=== PATIENT | female | born 1955 | race Caucasian/White ===

== ENCOUNTER 2016-04-25 10:00 | Outpatient (RCR) ==
[2015-11-25 07:50] VITALS: BMI 26.5
--- NOTE | 2016-04-12 09:04 | RS.OPPTDN ---
Subjective Date of Note: 04/12/16 Visit #: 9 Date of Evaluation: 03/15/16 Payer Source: MEDICARE Treatment Diagnosis: Adhesive capsulitis right shoulder Current Subjective/complaints:: Patient reports she had follow-up appt. yesterday at [facility],has continuation orders for PT,also had an injection in the R shoulder. Pain Assessment - Pain Description Pain Location: right shoulder Pain Description: Tightness, Aching, Chronic Current Pain Intensity: 10/10 - Heat/Cryotherapy Treatment: Hot Pack (20 mins. prior to exercises.) Interventions - Exercise/Activities/Manual Therapy Exercises/Activities: 30 mins. total of PROM to AAROM all motions,finger ladder exrcises at different angles with flexion and scaption to 132 degress,abduction to 95-98 degrees.Passive IR to 70 ,ER to 40 degrees. Total minutes of Exercise: 30 Manual Therapy: N/A HOME EXERCISE PROGRAM: Gentle passive stretches using the L UE or wand to assist in all directions.Pendulum exercises,wall-slides upward with R hand for shoulder elevation. - Charges Total Direct Minutes: 30 Total Treatment Time: 50 Procedures billed for this date of service:: hp,ex 2 Assessment: Patient has improved passive motion today in all directions.We reviewed HEP and joint mechanics.She has normal supervisor mattress and boxsprings and biceps strength, dsicussed to focus on flexibility as opposed to strengthening at this time. Patient Education: Education of diagnosis, Body/Joint mechanics, Home Exercise Program, Home Safety, Activity Modification, Education of Plan of Care Patient demonstrates compliance with HEP?: Yes Short Term Goals Goal #1: Intermittent right shoulder pain. Goal to be met by: 04/01/16 Progress towards Goal:: Progressing Goal #2: Right shoulder flexion 120 degrees Goal to be met by: 04/01/16 Progress towards Goal:: Partially Met Goal #3: Right shoulder abduction 100 degrees. Goal to be met by: 04/01/16 Progress towards Goal:: Progressing Goal #4: Independent with beginning HEP. 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 Goal to be met by: 04/15/16 Progress towards goal: Met Goal #2: Patient is able to perform all ADLs independently. Goal to be met by: 04/15/16 Progress towards goal: Progressing Goal #3: Pain of right shoulder does not interrupt sleep Goal to be met by: 04/15/16 Progress towards goal: Progressing Goal #4: Patient can brush her hair with the RUE with min difficulty. Goal to be met by: 04/15/16 Progress towards goal: Partially Met Plan PLAN OF CARE EXPIRES ON:: 04/15/16 ORDER # VISITS AND/OR THROUGH DATE: 04/15/2016 PLAN: Progress Exercises
--- NOTE | 2016-04-14 09:09 | RS.OPPTDN ---
Subjective Date of Note: 04/14/16 Visit #: 10 Date of Evaluation: 03/15/16 Payer Source: MEDICARE Treatment Diagnosis: Adhesive capsulitis right shoulder Current Subjective/complaints:: Reports the shoulder feels better today.She is doing her HEP. Pain Assessment - Pain Description Pain Location: right shoulder Pain Description: Tightness, Aching, Chronic Current Pain Intensity: 3/10 - Heat/Cryotherapy Treatment: Hot Pack (20 mins.prior to exercises) Interventions - Exercise/Activities/Manual Therapy Exercises/Activities: 30 mins. total of PROM to AAROM all motions,finger ladder exrcises at different angles with flexion and scaption to 145 degress,abduction to 100 degrees.Passive IR to 70 ,ER to 40 degrees. Total minutes of Exercise: 30 Manual Therapy: N/A Total minutes of Manual Therapy: 0 HOME EXERCISE PROGRAM: Gentle passive stretches using the L UE or wand to assist in all directions.Pendulum exercises,wall-slides upward with R hand for shoulder elevation. - Charges Total Direct Minutes: 30 Total Treatment Time: 50 Procedures billed for this date of service:: hp,ex2 Assessment: Patient is progressing has increased active and passive motion in the R shoulder with less pain. Patient Education: Education of diagnosis, Body/Joint mechanics, Home Exercise Program, Home Safety, Activity Modification, Education of Plan of Care Patient demonstrates compliance with HEP?: Yes Short Term Goals Goal #1: Intermittent right shoulder pain. Goal to be met by: 04/01/16 Progress towards Goal:: Progressing Goal #2: Right shoulder flexion 120 degrees Goal to be met by: 04/01/16 Progress towards Goal:: Met Goal #3: Right shoulder abduction 100 degrees. Goal to be met by: 04/01/16 Progress towards Goal:: Partially Met Goal #4: Independent with beginning HEP. Goal to be met by: 04/01/16 Progress towards Goal:: Partially Met Longterm Goals Goal #1: Patient independent in HEP. Goal to be met by: 04/15/16 Progress towards goal: Met Goal #2: Patient is able to perform all ADLs independently. Goal to be met by: 04/15/16 Progress towards goal: Progressing Goal #3: Pain of right shoulder does not interrupt sleep Goal to be met by: 04/15/16 Progress towards goal: Progressing Goal #4: Patient can brush her hair with the RUE with min difficulty. Goal to be met by: 04/15/16 Progress towards goal: Partially Met Plan PLAN OF CARE EXPIRES ON:: 04/15/16 ORDER # VISITS AND/OR THROUGH DATE: 04/15/2016 PLAN: Progress Exercises
--- NOTE | 2016-04-15 12:09 | RS.OPPTDN ---
Subjective Date of Note: 04/15/16 Visit #: 11 Date of Evaluation: 03/15/16 Payer Source: MEDICARE Treatment Diagnosis: Adhesive capsulitis right shoulder Current Subjective/complaints:: Reports not sleeping well last night,and her shoulder pain is elevated today. Pain Assessment - Pain Description Pain Location: right shoulder Pain Description: Tightness, Aching, Chronic Current Pain Intensity: 5/10 - Heat/Cryotherapy Treatment: Hot Pack (20 mins. prior to exercises) Interventions - Exercise/Activities/Manual Therapy Exercises/Activities: 30 mins. total of PROM to AAROM all motions,different angles with flexion and scaption to 145 degress,abduction to 100 degrees.Passive IR to 70 ,ER to 40 degrees.1# dumbbell for R UE only of same motions. Total minutes of Exercise: 30 Manual Therapy: N/A Total minutes of Manual Therapy: 0 HOME EXERCISE PROGRAM: Gentle passive stretches using the L UE or wand to assist in all directions.Pendulum exercises,wall-slides upward with R hand for shoulder elevation. - Charges Total Direct Minutes: 30 Total Treatment Time: 50 Procedures billed for this date of service:: hp,ex 2 Assessment: Patient more guarded today due to muscle soreness ,but this improved as exercises progressed.She has functional shoulder scaption and elevation.She has report of increased soreness and pain with reaching behind her back,but this is slowly improving. Patient Education: Body/Joint mechanics, Home Exercise Program, Education of Plan of Care Patient demonstrates compliance with HEP?: Yes Short Term Goals Goal #1: Intermittent right shoulder pain. Goal to be met by: 04/01/16 Progress towards Goal:: Progressing Goal #2: Right shoulder flexion 120 degrees Goal to be met by: 04/01/16 Progress towards Goal:: Met Goal #3: Right shoulder abduction 100 degrees. Goal to be met by: 04/01/16 Progress towards Goal:: Met Goal #4: Independent with beginning HEP. 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 Goal to be met by: 04/15/16 Progress towards goal: Met Goal #2: Patient is able to perform all ADLs independently. Goal to be met by: 04/15/16 Progress towards goal: Progressing Goal #3: Pain of right shoulder does not interrupt sleep Goal to be met by: 04/15/16 Progress towards goal: Progressing Goal #4: Patient can brush her hair with the RUE with min difficulty. Goal to be met by: 04/15/16 Progress towards goal: Partially Met Plan PLAN OF CARE EXPIRES ON:: 04/15/16 ORDER # VISITS AND/OR THROUGH DATE: 04/15/2016 PLAN: Progress Exercises
--- NOTE | 2016-04-19 14:03 | RS.OPPTDN ---
Subjective Date of Note: 04/19/16 Visit #: 12 Date of Evaluation: 03/15/16 Payer Source: MEDICARE Treatment Diagnosis: Adhesive capsulitis right shoulder Current Subjective/complaints:: Reports elevated pain the last couple of daysc/ o the R shoulder feeling tighter. Pain Assessment - Pain Description Pain Location: right shoulder Pain Description: Tightness, Sharp, Aching, Chronic Current Pain Intensity: 7/10 - Treatment Modality: Ultrasound Parameters/Method Applied: 10 mins. @ 1.5 w/cm2 to R shoulder,continuous mode. Patient Position: Supine - Heat/Cryotherapy Treatment: Hot Pack (20 mins. prior to ex ,US) Interventions - Exercise/Activities/Manual Therapy Exercises/Activities: 10 mins. total of PROM in all directions,stopped due to sharp pain. Total minutes of Exercise: 10 Manual Therapy: N/A Total minutes of Manual Therapy: 0 HOME EXERCISE PROGRAM: Gentle passive stretches using the L UE or wand to assist in all directions.Pendulum exercises,wall-slides upward with R hand for shoulder elevation. - Charges Total Direct Minutes: 20 Total Treatment Time: 40 Procedures billed for this date of service:: hp,ex,US Assessment: Patient reports elevated pain today,pointing to the RTC insertion site today.She is more guarded today with all motions.Instructed to avoid exercises that elevates her pain today. Patient Education: Body/Joint mechanics, Home Safety, Activity Modification Patient demonstrates compliance with HEP?: Yes Short Term Goals Goal #1: Intermittent right shoulder pain. Goal to be met by: 04/01/16 Progress towards Goal:: Regressing Goal #2: Right shoulder flexion 120 degrees Goal to be met by: 04/01/16 Progress towards Goal:: Met Goal #3: Right shoulder abduction 100 degrees. Goal to be met by: 04/01/16 Progress towards Goal:: Met Goal #4: Independent with beginning HEP. Goal to be met by: 04/01/16 Progress towards Goal:: Partially Met Mcfp Goals Goal #1: Patient independent in HEP. Goal to be met by: 04/15/16 Progress towards goal: Met Goal #2: Patient is able to perform all ADLs independently. Goal to be met by: 04/15/16 (due to pain) Progress towards goal: Regressing Goal #3: Pain of right shoulder does not interrupt sleep Goal to be met by: 04/15/16 (due to pain) Progress towards goal: Regressing Goal #4: Patient can brush her hair with the RUE with min difficulty. Goal to be met by: 04/15/16 Progress towards goal: Partially Met Plan PLAN OF CARE EXPIRES ON:: 04/25/16 ORDER # VISITS AND/OR THROUGH DATE: 04/25/2016 PLAN: Continue Plan of Care
--- NOTE | 2016-04-20 09:27 | RS.OPPTDN ---
Subjective Date of Note: 04/20/16 Visit #: 13 Date of Evaluation: 03/15/16 Payer Source: MEDICARE Treatment Diagnosis: Adhesive capsulitis right shoulder Current Subjective/complaints:: Reports the pain is ,"a little better" this morning. Pain Assessment - Pain Description Pain Location: right shoulder Pain Description: Tightness, Sharp, Aching, Chronic Current Pain Intensity: 5/10 - Treatment Modality: Ultrasound Parameters/Method Applied: 10 mins. @ 1.5 w/cm2,continuous mode to R RTC tendon insertion site. Patient Position: Supine - Heat/Cryotherapy Treatment: Hot Pack (20 mins. R shoulder) Interventions - Exercise/Activities/Manual Therapy Exercises/Activities: 20 mins. total of 1# wand exercises,3/15 each of shoulder flexion,IR/ER,chest press with emphasis on scapular protraction. Total minutes of Exercise: 20 Manual Therapy: N/A Total minutes of Manual Therapy: 0 HOME EXERCISE PROGRAM: Gentle passive stretches using the L UE or wand to assist in all directions.Pendulum exercises,wall-slides upward with R hand for shoulder elevation. - Charges Total Direct Minutes: 30 Total Treatment Time: 50 Procedures billed for this date of service:: hp,ex ,US Assessment: Patient less guarded with wand exercises as opposed to PROM yesterday.Reports pain with active ER is less than yesterday.Her shoulder flexion and abduction is functional.She continues to be compliant to HEP, reminded her to do exercises in PAIN FREE ROM. Patient Education: Body/Joint mechanics, Home Exercise Program, Home Safety, Education of Plan of Care Patient demonstrates compliance with HEP?: Yes Short Term Goals Goal #1: Intermittent right shoulder pain. Goal to be met by: 04/01/16 Progress towards Goal:: Progressing Goal #2: Right shoulder flexion 120 degrees Goal to be met by: 04/01/16 Progress towards Goal:: Met Goal #3: Right shoulder abduction 100 degrees. Goal to be met by: 04/01/16 Progress towards Goal:: Met Goal #4: Independent with beginning HEP. 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 Goal to be met by: 04/15/16 Progress towards goal: Met Goal #2: Patient is able to perform all ADLs independently. Goal to be met by: 04/15/16 (due to pain) Progress towards goal: Progressing Goal #3: Pain of right shoulder does not interrupt sleep Goal to be met by: 04/15/16 (due to pain) Progress towards goal: Progressing Goal #4: Patient can brush her hair with the RUE with min difficulty. Goal to be met by: 04/15/16 Progress towards goal: Partially Met Plan PLAN OF CARE EXPIRES ON:: 04/25/16 ORDER # VISITS AND/OR THROUGH DATE: 04/25/2016 PLAN: Continue Plan of Care
--- NOTE | 2016-04-22 09:06 | RS.OPPTDN ---
Subjective Date of Note: 04/22/16 Visit #: 14 Date of Evaluation: 03/15/16 Payer Source: MEDICARE Treatment Diagnosis: Adhesive capsulitis right shoulder Current Subjective/complaints:: Reports , "15 out of 10",elevated pain during the night ,but is less at this time. Pain Assessment - Pain Description Pain Location: right shoulder Pain Description: Tightness, Sharp, Dull, Aching, Chronic Current Pain Intensity: 4/10 - Heat/Cryotherapy Treatment: Hot Pack (20 mins. to R shoulder prior to exercises) Interventions - Exercise/Activities/Manual Therapy Exercises/Activities: 25 mins. wand exercises with 3# for flexion ,scaption, IR/ ER,chest press.06/15 each.Ended session with PROM of same. Total minutes of Exercise: 25 Manual Therapy: N/A HOME EXERCISE PROGRAM: Gentle passive stretches using the L UE or wand to assist in all directions.Pendulum exercises,wall-slides upward with R hand for shoulder elevation. - Charges Total Direct Minutes: 25 Total Treatment Time: 45 Procedures billed for this date of service:: hp,ex 2 Assessment: Patient is approaching rehab potential.She continues to have sharp pain at end ROM ,passively or actively.She is compliant to HEp.Her pain varies with position ,also. Patient Education: Education of Plan of Care Patient demonstrates compliance with HEP?: Yes Short Term Goals Goal #1: Intermittent right shoulder pain. Goal to be met by: 04/01/16 Progress towards Goal:: Partially Met Goal #2: Right shoulder flexion 120 degrees Goal to be met by: 04/01/16 Progress towards Goal:: Met Goal #3: Right shoulder abduction 100 degrees. Goal to be met by: 04/01/16 Progress towards Goal:: Met Goal #4: Independent with beginning HEP. Goal to be met by: 04/01/16 Progress towards Goal:: Met Support Dba Goals Goal #1: Patient independent in HEP. Goal to be met by: 04/15/16 Progress towards goal: Met Goal #2: Patient is able to perform all ADLs independently. Goal to be met by: 04/15/16 (due to pain) Progress towards goal: Progressing Goal #3: Pain of right shoulder does not interrupt sleep Goal to be met by: 04/15/16 (due to pain) Progress towards goal: No Change Goal #4: Patient can brush her hair with the RUE with min difficulty. Goal to be met by: 04/15/16 Progress towards goal: Partially Met Plan PLAN OF CARE EXPIRES ON:: 04/25/16 ORDER # VISITS AND/OR THROUGH DATE: 04/25/2016 PLAN: Continue Plan of Care
--- NOTE | 2016-04-25 11:02 | RS.OPPTDC ---
Date of Discharge: 04/25/16 Date of Evaluation: 03/15/16 Number of Visits: 15 Treatment Diagnosis: Adhesive capsulitis right shoulder Current Level of Function: Tolerates ADL's fairly well,but chronic R shoulder pain still present. Current Complaints/Gains: Reports doing her HEP as tolerated.She is concerned that she is only getting temporary relief from therapy.She is aware of D/C plan today due to lack of progress. Pain Assessment - Pain Description Pain Location: right shoulder Pain Description: Tightness, Sharp, Dull, Aching, Chronic Current Pain Intensity: 5/10 Functional Outcome Measure UE Functional Index: 28 - G Codes & Severity Modifier G Codes & Modifier: NA Source of G Code score: NA Observation - Observation Posture: Rounded Shoulders - Heat/Cryotherapy Treatment: Hot Pack (20 mins. prior to exercises) Interventions - Exercise/Activities/Manual Therapy Exercises/Activities: 25 mins. HEP review and PROM all directions. Total minutes of Exercise: 25 Manual Therapy: N/A Total minutes of Manual Therapy: 0 HOME EXERCISE PROGRAM: Gentle passive stretches using the L UE or wand to assist in all directions.Pendulum exercises,wall-slides upward with R hand for shoulder elevation. - Charges Total Direct Minutes: 25 Total Treatment Time: 45 Procedures billed for this date of service:: hp,ex 2 Assessment Assessment: Patient has no significant change in her pain level,continues to have sharp pain at available end ROM ,especially with ER.She is compliant to HEP ,and understands to not push through sharp pain ,as her MRI indicates a supraspinatus tear.She has follow-up appt. with in one month.She is aware of D/C today. Patient Education: Body/Joint mechanics, Home Exercise Program, Activity Modification, Education of Plan of Care Rehab Potential: Fair Short Term Goals Goal #1: Intermittent right shoulder pain. Goal to be met by: 04/01/16 Progress towards Goal:: Partially Met Goal #2: Right shoulder flexion 120 degrees Goal to be met by: 04/01/16 Progress towards Goal:: Met Goal #3: Right shoulder abduction 100 degrees. Goal to be met by: 04/01/16 Progress towards Goal:: Met Goal #4: Independent with beginning HEP. 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 Goal to be met by: 04/15/16 Progress towards goal: Met Goal #2: Patient is able to perform all ADLs independently. Goal to be met by: 04/15/16 Progress towards goal: Progressing Goal #3: Pain of right shoulder does not interrupt sleep Goal to be met by: 04/15/16 (due to pain) Progress towards goal: No Change Goal #4: Patient can brush her hair with the RUE with min difficulty. Goal to be met by: 04/15/16 (increased pain today) Progress towards goal: Regressing Plan Reason for Discharge:: Lack of Progress
== END 2016-05-03 ==
PROVIDERS: ATTEND Orthopaedic Surgery
DX: M75.01 Adhesive capsulitis of right shoulder (principal)

== ENCOUNTER 2016-05-20 10:22 | Outpatient (CLI) ==
[2015-11-25 07:50] VITALS: BMI 26.5
[2016-05-20 18:26] LABS: ALBUMIN 4.1 g/dL (3.4-5.0); ALBUMIN/GLOBULIN RATIO 0.93; ANION GAP 16.7; BILIRUBIN,TOTAL 0.53 mg/dL (0.00-1.20); BUN/CREATININE RATIO 10.2; CALCIUM 10.1 mg/dL (8.2-10.2); CHOL/HDL RATIO 3.6 (4.5-5.5); CREATININE 0.98 mg/dL (0.60-1.30); POTASSIUM 3.7 mmol/L (3.5-5.10); TOTAL PROTEIN 8.5 g/dL (5.8-8.1)
== END 2016-05-20 10:23 | disposition home or self-care (01) ==
LOC: LAB 10:22
PROVIDERS: ATTEND Specialist
DX: D72.829 Elevated white blood cell count, unspecified (principal); E11.9 Type 2 diabetes mellitus without complications; E78.5 Hyperlipidemia, unspecified
CPT/HCPCS: 36415; 80053; 80061; 83036; 85027

== ENCOUNTER → 2016-07-01 | Outpatient (RCR) ==
[2015-11-25 07:50] VITALS: BMI 26.5
--- NOTE | 2016-06-10 16:31 | RS.OPPTEV2 ---
Date of Note: 06/10/16 Visit #: 1 Date of Evaluation: 06/10/16 Payer Source: MEDICARE Date of Onset/Injury/Change in Status: 10/06/14 Surgery Performed?: No Procedure Performed: Manipulation Date of Procedure: 06/09/16 Treatment Diagnosis: Right shoulder pain, shoulder stiffness, s/p right shoulder surgery History of Condition/Mechanism of Injury:: Patient injured the right shoulder in 2014, when she slipped on a wet area on the floor. Reports pain got progressively worse. Prior Level of Function.....Patient was independent with: ADL's, Self Care, Caregiving, Ambulation/Mobility, Community Integration/Access Functional Limitations: Sleep, Self Care, ADL's, Reaching, Pushing, Pulling, Lifting, Carrying, Sitting, Standing, Bending, Squatting, Ambulation, Community Access/Integration Current Subjective/complaints:: Patient reports significant right shoulder pain after having surgery yesterday (06/09/16). States she was not able to have a nerve block. Her states that she is to use the sling until she goes back to the doctor for a follow up on 06/20/16. States the surgery involved a manipulation to the shoulder and cleaning out all of the scar tissue. She denies any tingling or numbness. States she is right hand dominant. Reports she has Bunch for pain. She is taking one every 4 hours. She did take one approximately an hour before coming in today. States the arm aches at rest. States her sleep was interrupted prior to surgery because of the shoulder. States she was unable to go to sleep until about 1:30 this morning. Treatment Side (optional): Right Medical History Medical History: COPD, Diabetes, Arthritis (joints), Cancer (ovarian) Surgical History: Lumbar Spine Surgical History Comments:: Multiple vascular stents with most recent last wk. Smoking Status: Current every day smoker Hx Home Medications: Bunch, Gabapentin Patient's Goals: Her goal is to get relief of shoulder pain and regain functional ROM. Pain Assessment - Pain Description Pain Location: right shoulder Pain Description: Sharp (at times), Aching Current Pain Intensity: 8/10 Worst Pain Intensity: not rated Functional Outcome Measure UE Functional Index: 0 - G Codes & Severity Modifier G Codes & Modifier: Selfcare current CN. Selfcare goal CK Source of G Code score: UE functional scale Observation - Observation Inspection: Patient presents to therapy with pressure dressing over the right shoulder joint and sling to the right UE. Posture: Forward Head, Rounded Shoulders, Scapula Asymmetry (right elevated) Handedness: Right BMI - BMI Weight: 144 lb Height: 5 ft 2 in BMI: 26.3 Shoulder ROM: Left WFL's Shoulder Muscle Strength: Left WFL's - Right Shoulder ROM Comments: PROM of the right shoulder limited significantly by muscle guarding and anxiety of patient. Patient with reports of sharp pain with shoulder abduction. Patient maximal PROM today: flexion 85-90 degrees, abduction 40 degrees, ER 20-30 degrees. Sensation - Sensation Right Upper Extremity: Intact/Normal Left Upper Extremity: Intact/Normal Interventions - Exercise/Activities/Manual Therapy Exercises/Activities: Patient received PROM to the right shoulder into flexion, abduction, ER for 25 mins. Patient instructed in scapular retraction, pendulum exercises, and PROM into shoulder flexion. Also given squeeze ball to work the right hand for swelling. Given written instructions to make homemade cold pack with rubbing alcohol and water. Strongly advised to ice the right shoulder several times a day and recommended she take 2 Bunch an hour before therapy. Manual Therapy: N/A HOME EXERCISE PROGRAM: scapular retraction, pendulum exercises, and PROM into shoulder flexion. Also given squeeze ball to work the right hand for swelling - Charges Total Direct Minutes: 55 mins Total Treatment Time: 55 mins Procedures billed for this date of service:: DICK Nichols, GAYE Assessment Assessment: Patient presents one day s/p right shoulder surgery with manipulation. She demonstrates a low tolerance for ROM today due to reports of pain. I recommended she take two Bunch for the pain rather than just one like she did today. She is right hand dominant and currently is unable to use the right hand for selfcare or ADL's. She will benefit from therapy to regain functional use of the right UE. Patient Education: Education of diagnosis, Body/Joint mechanics, Home Exercise Program, Home Safety, Activity Modification, Education of Plan of Care Rehab Potential: Good Short Term Goals Goal #1: Patient compliant with HEP. Goal to be met by: 06/17/16 Goal #2: PROM of right shoulder WFL's. Goal to be met by: 06/24/16 Goal #3: Right shoulder AROM 90 degrees flexion. Goal to be met by: 06/24/16 Goal #4: Patient with improved postural awareness. Goal to be met by: 06/24/16 Administration Vice President Goals Goal #1: Pt knows HEP and to continue ex's to maintain level of function at D/C. Goal to be met by: 07/25/16 Goal #2: Score on UE functional scale improved to 50/80. Goal to be met by: 07/25/16 Goal #3: Pt able to use right UE for selfcare and light ADL's w/o difficulty. Goal to be met by: 07/25/16 Goal #4: Patient able to sleep at night w/o interruption from right shoulder pain. Goal to be met by: 07/25/16 Plan - Treatment to be Provided Procedures: Therapeutic Exercises, Therapeutic Activity, Manual Therapy, Massage , Patient Education Modalities: Electrical Stimulation, Cryotherapy - Treatment Plan Frequency: Daily (for two weeks, 3X week for 4 weeks.) Duration: 6 weeks ORDER # VISITS AND/OR THROUGH DATE: 07/25/16 - Treatment Code (1) Right shoulder pain Qualifiers: Chronicity: acute Qualified Description: Acute pain of right shoulder Qualifier Code(s): (M25.511) Pain in right shoulder (2) Shoulder stiffness Qualifiers: Laterality: right Qualified Description: Stiffness of shoulder joint, right Qualifier Code(s): (M25.611) Stiffness of right shoulder, not elsewhere classified (3) Adhesive capsulitis Qualifiers: Laterality: right Qualified Description: Adhesive capsulitis of right shoulder Qualifier Code(s): (M75.01) Adhesive capsulitis of right shoulder (4) S/P shoulder surgery Comments: Z98.890 manipulation, subacromial decompression.
--- NOTE | 2016-06-13 13:28 | RS.OPPTDN ---
Subjective Date of Note: 06/13/16 Visit #: 2 Date of Evaluation: 06/10/16 Payer Source: MEDICARE Treatment Diagnosis: Right shoulder pain, shoulder stiffness, s/p right shoulder surgery Current Subjective/complaints:: Patient reports she only took one pain tablet because she was worried taking 2 would make her sick to her stomach. Reports pain with all passive motion. Pain Assessment - Pain Description Pain Location: right shoulder Pain Description: Sharp (at times), Aching Pain Description: "lightning bolt" down right LE. Current Pain Intensity: 8/10 Other Comments regarding Pain:: Reports sharp pain with PROM of right shoulder into flexion. Patient cries during treatment due to pain. - Heat/Cryotherapy Treatment: Cryotherapy ([id number] to the right shoulder prior to EX. Patient in sitting. ) Interventions - Exercise/Activities/Manual Therapy Exercises/Activities: Patient received PROM to the right shoulder into flexion, which is limited due to pain. ROM of right wrist and elbow flexion/extension. Patient assisted to standing and leans on high table for assisted Codmans. Active shoulder shrugs and scap retraction. Cervical lateral stretching. Reminded patient to work on squeezing ball for right hand for swelling. Patient given copies of new exercise. Total minutes of Exercise: 30mins Manual Therapy: N/A HOME EXERCISE PROGRAM: scapular retraction, pendulum exercises, and PROM into shoulder flexion. Also given squeeze ball to work the right hand for swelling. - Objective Findings Observations,measurements,etc.: 5mins. Removed patients post-op dressing. Incisions are dry and intact. No redness noted. Covered with 4x4's to protect from clothing when patient left department. Patient very guarded but was able to tolerate right arm to approx 95 degrees flexion by end of session. - Charges Total Direct Minutes: 35mins Total Treatment Time: 50mins Procedures billed for this date of service:: CP, EX2 Assessment: Patients pain level limiting ROM. She will need to work on Codmans and use ice several times per day. Patient Education: Education of diagnosis, Body/Joint mechanics, Home Exercise Program, Home Safety, Activity Modification Patient demonstrates compliance with HEP?: Yes Short Term Goals Goal #1: Patient compliant with HEP. Goal to be met by: 06/17/16 Progress towards Goal:: Progressing Goal #2: PROM of right shoulder WFL's. Goal to be met by: 06/24/16 Goal #3: Right shoulder AROM 90 degrees flexion. Goal to be met by: 06/24/16 Goal #4: Patient with improved postural awareness. Goal to be met by: 06/24/16 Ladder Operator Goals Goal #1: Pt knows HEP and to continue ex's to maintain level of function at D/C. Goal to be met by: 07/25/16 Goal #2: Score on UE functional scale improved to 50/80. Goal to be met by: 07/25/16 Goal #3: Pt able to use right UE for selfcare and light ADL's w/o difficulty. Goal to be met by: 07/25/16 Goal #4: Patient able to sleep at night w/o interruption from right shoulder pain. Goal to be met by: 07/25/16 Plan PLAN OF CARE EXPIRES ON:: 07/25/16 ORDER # VISITS AND/OR THROUGH DATE: 07/25/16 PLAN: Continue Plan of Care
--- NOTE | 2016-06-14 10:21 | RS.OPPTDN ---
Subjective Date of Note: 06/14/16 Visit #: 3 Date of Evaluation: 06/10/16 Payer Source: MEDICARE Treatment Diagnosis: Right shoulder pain, shoulder stiffness, s/p right shoulder surgery Current Subjective/complaints:: Patient says she took 2 pain pills this morning and denies nausea. She says that she tries to move her arm (table slides for flexion, scap retraction, and shoulder shrugs). She says she is using ice too. Pain Assessment - Pain Description Pain Location: right shoulder (upper arm) Pain Description: Sharp (at times), Aching Pain Description: "lightning bolt" down right LE. Current Pain Intensity: 8/10 - Treatment Modality: Electrical Stim Unattended Parameters/Method Applied: hivolt 4 small pads crossed over the R shoulder @ 90 pk volts x 20 mins with ice. PRIOR to therex Patient Position: Sitting - Heat/Cryotherapy Treatment: Cryotherapy Interventions - Exercise/Activities/Manual Therapy Exercises/Activities: Patient received PROM to the right shoulder into flexion, which is limited due to pain. ROM of right wrist and elbow flexion/extension in supine with head of table inclined. Patient stands to perform pendulum several times. Moved to chair due to increased pain and very limited PROM. Active shoulder shrugs and scap retraction. Cervical lateral stretching. Reviewed HEP. Total minutes of Exercise: 30 Manual Therapy: N/A HOME EXERCISE PROGRAM: scapular retraction, pendulum exercises, and PROM into shoulder flexion. Also given squeeze ball to work the right hand for swelling. - Objective Findings Observations,measurements,etc.: purple bruising noted at the R posterior shoulder, along the bicep muscle belly and to the medial mid humerus. - Charges Total Direct Minutes: 30 Total Treatment Time: 50 Procedures billed for this date of service:: cp, estim (un), ex2 Assessment: Patient bayron treatment better today probably due to taking 2 pain meds and we did move from supine to sitting. She bayron increased passive shoulder flexion and eccentric exercises better as well. Patient Education: Education of diagnosis, Body/Joint mechanics, Home Exercise Program, Home Safety, Activity Modification, Education of Plan of Care Patient demonstrates compliance with HEP?: Yes Short Term Goals Goal #1: Patient compliant with HEP. Goal to be met by: 06/17/16 Progress towards Goal:: Progressing Goal #2: PROM of right shoulder WFL's. Goal to be met by: 06/24/16 Goal #3: Right shoulder AROM 90 degrees flexion. Goal to be met by: 06/24/16 Goal #4: Patient with improved postural awareness. Goal to be met by: 06/24/16 Tight Rope Walker Goals Goal #1: Pt knows HEP and to continue ex's to maintain level of function at D/C. Goal to be met by: 07/25/16 Goal #2: Score on UE functional scale improved to 50/80. Goal to be met by: 07/25/16 Goal #3: Pt able to use right UE for selfcare and light ADL's w/o difficulty. Goal to be met by: 07/25/16 Goal #4: Patient able to sleep at night w/o interruption from right shoulder pain. Goal to be met by: 07/25/16 Plan PLAN OF CARE EXPIRES ON:: 07/25/16 ORDER # VISITS AND/OR THROUGH DATE: 07/25/16 PLAN: Progress Exercises
--- NOTE | 2016-06-15 15:20 | RS.OPPTDN ---
Subjective Date of Note: 06/15/16 Visit #: 4 Date of Evaluation: 06/10/16 Payer Source: MEDICARE Treatment Diagnosis: Right shoulder pain, shoulder stiffness, s/p right shoulder surgery Current Subjective/complaints:: Patient states she took two pain pills prior to therapy. States she cannot tolerate ROM/stretching to the right shoulder in supine. States she prefers to receive her therapy sitting in the chair. Patient states she has only performed the pendulum exercise a few times. States she doesn't like it because it hurts. Pain Assessment - Pain Description Pain Location: right shoulder (upper arm) Pain Description: Sharp, Aching Current Pain Intensity: 8/10 - Treatment Modality: Electrical Stim Unattended Parameters/Method Applied: 4 large pads to right shoulder HVGS X 15 mins with CP up to 135 peak volts Patient Position: Sitting - Heat/Cryotherapy Treatment: Cryotherapy (with Estim) Interventions - Exercise/Activities/Manual Therapy Exercises/Activities: Patient request to receive PROM while seated in chair. Patient received PROM into all directions. Patient tolerates Passive to AAROM to 95 degrees flexion in sitting, abduction to 60 degrees. ER is limited passively to 15-20 degrees. Patient feels a "pull" with ER. *Surgical report has not been received at this date. Another call was made to the [facility] to request information on what procedures were performed to the patient's shoulder so that we know what to avoid and how aggressive to push therapy. Manual Therapy: N/A HOME EXERCISE PROGRAM: scapular retraction, pendulum exercises, and PROM into shoulder flexion. Also given squeeze ball to work the right hand for swelling. - Charges Total Direct Minutes: 26 mins Total Treatment Time: 41 mins Procedures billed for this date of service:: CP, EStim, Ex2 Assessment: Patient with better tolerance with ROM today compared to initial visit. She had taken two pain pills today prior to her appointment. Right shoulder ROM is significantly limited, especially into ER. Advised patient to perform pendulum exercise a few times a day all with the exercises of her HEP. We have not been able to get an operative report. My call today to the [facility] was forwarded to Medical Records again. Patient Education: Body/Joint mechanics, Home Exercise Program, Home Safety, Activity Modification, Education of Plan of Care Short Term Goals Goal #1: Patient compliant with HEP. Goal to be met by: 06/17/16 Progress towards Goal:: Progressing Goal #2: PROM of right shoulder WFL's. Goal to be met by: 06/24/16 Goal #3: Right shoulder AROM 90 degrees flexion. Goal to be met by: 06/24/16 Goal #4: Patient with improved postural awareness. Goal to be met by: 06/24/16 Long-Term Goals Goal #1: Pt knows HEP and to continue ex's to maintain level of function at D/C. Goal to be met by: 07/25/16 Goal #2: Score on UE functional scale improved to 50/80. Goal to be met by: 07/25/16 Goal #3: Pt able to use right UE for selfcare and light ADL's w/o difficulty. Goal to be met by: 07/25/16 Goal #4: Patient able to sleep at night w/o interruption from right shoulder pain. Goal to be met by: 07/25/16 Plan PLAN OF CARE EXPIRES ON:: 07/25/16 ORDER # VISITS AND/OR THROUGH DATE: 07/25/16 PLAN: Progress Exercises
--- NOTE | 2016-06-16 12:31 | RS.OPPTDN ---
Subjective Date of Note: 06/16/16 Visit #: 5 Date of Evaluation: 06/10/16 Payer Source: MEDICARE Treatment Diagnosis: Right shoulder pain, shoulder stiffness, s/p right shoulder surgery Current Subjective/complaints:: Patient reports continued pain to the R shoulder. She reports tightness at the mid deltoid region. She says she will return to the MD on 06/21/16. She states she did take 2 pain meds again this morning to help with therapy. Reports estim does help temporarily. Pain Assessment - Pain Description Pain Location: right shoulder (upper arm) Pain Description: Sharp, Aching Pain Description: "lightning bolt" down right LE. Current Pain Intensity: 10/10 - Treatment Modality: Electrical Stim Unattended Parameters/Method Applied: 4 small pads surrounding the R shoulder @ 145-160 pk volts x 20 mins PRIOR to therex Patient Position: Sitting - Heat/Cryotherapy Treatment: Cryotherapy Interventions - Exercise/Activities/Manual Therapy Exercises/Activities: Patient request to receive PROM while seated in chair. Patient received PROM into all directions. Patient tolerates Passive to AAROM to 95-100 degrees flexion in sitting, abduction to 60 degrees. ER is limited passively to only neutral today. Patient feels a "pull" with ER and with abd. Passive elbow and wrist motions. *Surgical report has not been received at this date. Another call was made to the [facility] to request information on what procedures were performed to the patient's shoulder so that we know what to avoid and how aggressive to push therapy. Total minutes of Exercise: 35 Manual Therapy: N/A HOME EXERCISE PROGRAM: scapular retraction, pendulum exercises, and PROM into shoulder flexion. Also given squeeze ball to work the right hand for swelling. - Charges Total Direct Minutes: 35 Total Treatment Time: 55 Procedures billed for this date of service:: ex2, estim (un), cp Assessment: Patient continues to be unable to bayron therex well. She does demo improved passive flexion, but worse ER. Patient Education: Education of diagnosis, Body/Joint mechanics, Home Exercise Program, Home Safety, Activity Modification, Education of Plan of Care Patient demonstrates compliance with HEP?: Yes (when able) Short Term Goals Goal #1: Patient compliant with HEP. Goal to be met by: 06/17/16 Progress towards Goal:: Progressing Goal #2: PROM of right shoulder WFL's. Goal to be met by: 06/24/16 Goal #3: Right shoulder AROM 90 degrees flexion. Goal to be met by: 06/24/16 Goal #4: Patient with improved postural awareness. Goal to be met by: 06/24/16 Mcfp Goals Goal #1: Pt knows HEP and to continue ex's to maintain level of function at D/C. Goal to be met by: 07/25/16 Goal #2: Score on UE functional scale improved to 50/80. Goal to be met by: 07/25/16 Goal #3: Pt able to use right UE for selfcare and light ADL's w/o difficulty. Goal to be met by: 07/25/16 Goal #4: Patient able to sleep at night w/o interruption from right shoulder pain. Goal to be met by: 07/25/16 Plan PLAN OF CARE EXPIRES ON:: 07/25/16 ORDER # VISITS AND/OR THROUGH DATE: 07/25/16 PLAN: Progress Exercises (as able)
--- NOTE | 2016-06-17 16:19 | RS.OPPTDN ---
Subjective Date of Note: 06/17/16 Visit #: 6 Date of Evaluation: 06/10/16 Payer Source: MEDICARE Treatment Diagnosis: Right shoulder pain, shoulder stiffness, s/p right shoulder surgery Current Subjective/complaints:: Patient reports continued discomfort with PROM all directions. Pain Assessment - Pain Description Pain Location: right shoulder (upper arm) Pain Description: Sharp, Aching Pain Description: "lightning bolt" down right LE. Current Pain Intensity: 10/10 - Treatment Modality: Electrical Stim Unattended Parameters/Method Applied: [id number] HVGC 250p.v. with 4 small pads cross current to the right shoulder joint with CP prior to EX. Patient Position: Sitting - Heat/Cryotherapy Treatment: Cryotherapy ([id number] with Estim ) Interventions - Exercise/Activities/Manual Therapy Exercises/Activities: Began with assisted Codmans ABS. Assisted with passive shoulder motion. Continued PROM in chair as patient responded better last session. PROM into all directions. ROM of the right elbow and wrist. Active shoulder shrugs and scapular retraction. Patient tolerates PROM to 114 degrees flexion and 85 abduction. ER is limited passively to 18 degrees. Total minutes of Exercise: 25mins Manual Therapy: N/A HOME EXERCISE PROGRAM: scapular retraction, pendulum exercises, and PROM into shoulder flexion. Also given squeeze ball to work the right hand for swelling. - Objective Findings Observations,measurements,etc.: PROM to 114 degrees flexion and 85 abduction. ER is limited passively to 18 degrees. - Charges Total Direct Minutes: 25mins Total Treatment Time: 45mins Procedures billed for this date of service:: CP, Estim unattended, EX2 Assessment: Patient continues to be very limited due to pain. She did demo improvement in PROM measurements today. Patient Education: Home Exercise Program, Activity Modification Comments: Advised patient to increase times per day she is doing Codmans. Patient demonstrates compliance with HEP?: Yes Short Term Goals Goal #1: Patient compliant with HEP. Goal to be met by: 06/17/16 Progress towards Goal:: Progressing Goal #2: PROM of right shoulder WFL's. Goal to be met by: 06/24/16 Progress towards Goal:: Progressing Goal #3: Right shoulder AROM 90 degrees flexion. Goal to be met by: 06/24/16 Progress towards Goal:: Not Met Goal #4: Patient with improved postural awareness. Goal to be met by: 06/24/16 Progress towards Goal:: Progressing Painter Touch Up Goals Goal #1: Pt knows HEP and to continue ex's to maintain level of function at D/C. Goal to be met by: 07/25/16 Goal #2: Score on UE functional scale improved to 50/80. Goal to be met by: 07/25/16 Goal #3: Pt able to use right UE for selfcare and light ADL's w/o difficulty. Goal to be met by: 07/25/16 Goal #4: Patient able to sleep at night w/o interruption from right shoulder pain. Goal to be met by: 07/25/16 Plan PLAN OF CARE EXPIRES ON:: 07/25/16 ORDER # VISITS AND/OR THROUGH DATE: 07/25/16 PLAN: Continue Plan of Care (Continue and progress ROM and gentle strengthening. )
--- NOTE | 2016-06-20 16:17 | RS.OPPTDN ---
Subjective Date of Note: 06/20/16 Visit #: 7 Date of Evaluation: 06/10/16 Payer Source: MEDICARE Treatment Diagnosis: Right shoulder pain, shoulder stiffness, s/p right shoulder surgery Current Subjective/complaints:: Patient says that she was told we could exercise her arm more and only wear her sling when she feels she needs to. She says her arm is moving better and she continues to work it at home. Pain Assessment - Pain Description Pain Location: right shoulder (anteriorally) Pain Description: Sharp, Aching Pain Description: "lightning bolt" down right LE. Current Pain Intensity: 09/10 - Treatment Modality: Electrical Stim Unattended Parameters/Method Applied: 4 small pads surrounding the R shoulder @ 135 pk volts x 20 mins prior to therex Patient Position: Sitting - Heat/Cryotherapy Treatment: Cryotherapy Interventions - Exercise/Activities/Manual Therapy Exercises/Activities: Assisted with passive shoulder motion. Continued PROM in chair as patient responds best. PROM into all directions. ROM of the right elbow and wrist. Active shoulder shrugs and scapular retraction. Active elbow and wrist motion. Began shoulder pulleys x 12 slowly and showed as he felt he could make them at home instead of purchasing them. Total minutes of Exercise: 33 Manual Therapy: N/A HOME EXERCISE PROGRAM: scapular retraction, pendulum exercises, and PROM into shoulder flexion. Also given squeeze ball to work the right hand for swelling. - Charges Total Direct Minutes: 33 Total Treatment Time: 53 Procedures billed for this date of service:: cp, estim (un), ex2 Assessment: Patient continues to demonstrate slow improvement with mobility. ER bayron better with less pain, but most success with shoulder flexion. Purple bruising remains throughout the R upper arm. She was encouraged to leave therapy without the sling, but wear perhaps out shopping so to protect the shoulder from others. Began pulleys and patient's will likely make them for her to work with at home. Less pain noted throughout session and afterwards. Patient Education: Education of diagnosis, Body/Joint mechanics, Home Exercise Program, Home Safety, Activity Modification, Education of Plan of Care Patient demonstrates compliance with HEP?: Yes Short Term Goals Goal #1: Patient compliant with HEP. Goal to be met by: 06/17/16 Progress towards Goal:: Progressing Goal #2: PROM of right shoulder WFL's. Goal to be met by: 06/24/16 Progress towards Goal:: Progressing Goal #3: Right shoulder AROM 90 degrees flexion. Goal to be met by: 06/24/16 Progress towards Goal:: Not Met Goal #4: Patient with improved postural awareness. 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 Goal to be met by: 07/25/16 Goal #2: Score on UE functional scale improved to 50/80. Goal to be met by: 07/25/16 Goal #3: Pt able to use right UE for selfcare and light ADL's w/o difficulty. Goal to be met by: 07/25/16 Goal #4: Patient able to sleep at night w/o interruption from right shoulder pain. Goal to be met by: 07/25/16 Plan PLAN OF CARE EXPIRES ON:: 07/25/16 ORDER # VISITS AND/OR THROUGH DATE: 07/25/16 PLAN: Progress Exercises
--- NOTE | 2016-06-21 15:40 | RS.OPPTDN ---
Subjective Date of Note: 06/21/16 Visit #: 8 Date of Evaluation: 06/10/16 Payer Source: MEDICARE Treatment Diagnosis: Right shoulder pain, shoulder stiffness, s/p right shoulder surgery Current Subjective/complaints:: Patient reports increased pain since yesterday. Says she doesn't know what it is from. Reports she has not obtained pulleys from home yet, but will do so tonight. She says she pulled the steri strips off and feels "knots" at all 3 scope sites. She reports soreness at the anterior site with passive flexion. Pain Assessment - Pain Description Pain Location: right shoulder (anteriorally) Pain Description: Sharp, Aching Pain Description: "lightning bolt" down right LE. Current Pain Intensity: 09/10 - Treatment Modality: Electrical Stim Unattended Parameters/Method Applied: 4 small pads crossed @ 155-170 pk volts x 15 mins after therex Treatment Area: surrounding the R shoulder Patient Position: Sitting - Heat/Cryotherapy Treatment: Cryotherapy (during PROM of shoulder, elbow, and wrist in sitting) Interventions - Exercise/Activities/Manual Therapy Exercises/Activities: Assisted with passive shoulder motion. Continued PROM in chair as patient responds best. PROM into all directions. ROM of the right elbow and wrist. Active shoulder shrugs and scapular retraction. Active elbow and wrist motion. Continued with shoulder pulleys x 5-6. Total minutes of Exercise: 33 Manual Therapy: N/A HOME EXERCISE PROGRAM: scapular retraction, pendulum exercises, and PROM into shoulder flexion. Also given squeeze ball to work the right hand for swelling. - Charges Total Direct Minutes: 33 Total Treatment Time: 48 Procedures billed for this date of service:: cp, estim (un), ex2 Assessment: Patient experienced increased soreness following yesterday's session. She appeared to bayron all therex well today as PROM continued, but lessened time on pulleys and modified range passively with flex. Patient's motion appeared more tolerable with icing during PROM. Patient Education: Education of diagnosis, Body/Joint mechanics, Home Exercise Program, Home Safety, Activity Modification, Education of Plan of Care Patient demonstrates compliance with HEP?: Yes Short Term Goals Goal #1: Patient compliant with HEP. Goal to be met by: 06/17/16 Progress towards Goal:: Progressing Goal #2: PROM of right shoulder WFL's. Goal to be met by: 06/24/16 Progress towards Goal:: Progressing Goal #3: Right shoulder AROM 90 degrees flexion. Goal to be met by: 06/24/16 Progress towards Goal:: Not Met Goal #4: Patient with improved postural awareness. 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 Goal to be met by: 07/25/16 Goal #2: Score on UE functional scale improved to 50/80. Goal to be met by: 07/25/16 Goal #3: Pt able to use right UE for selfcare and light ADL's w/o difficulty. Goal to be met by: 07/25/16 Goal #4: Patient able to sleep at night w/o interruption from right shoulder pain. Goal to be met by: 07/25/16 Plan PLAN OF CARE EXPIRES ON:: 07/25/16 ORDER # VISITS AND/OR THROUGH DATE: 07/25/16 PLAN: Progress Exercises
--- NOTE | 2016-06-22 14:00 | RS.OPPTDN ---
Subjective Date of Note: 06/22/16 Visit #: 9 Date of Evaluation: 06/10/16 Payer Source: MEDICARE Treatment Diagnosis: Right shoulder pain, shoulder stiffness, s/p right shoulder surgery Current Subjective/complaints:: Patient reports active assisted motion is getting better. States her has bought items to make home shoulder pulleys. Pain Assessment - Pain Description Pain Location: right shoulder (anteriorally) Pain Description: Sharp, Aching Pain Description: "lightning bolt" down right LE. Current Pain Intensity: 10 - Treatment Modality: Electrical Stim Unattended Parameters/Method Applied: [id number] HVGC to 165p.v. with 4 small pads cross current to the right shoulder with CP prior to EX. Patient Position: Sitting - Heat/Cryotherapy Treatment: Cryotherapy ([id number] with Estim ) Interventions - Exercise/Activities/Manual Therapy Exercises/Activities: 30mins Continued PROM and AAROM with patient in sitting. ROM of the right elbow and wrist. Patient holds right UE in mid range when going through right shoulder ROM. Active shoulder shrugs and scapular retraction. Isometric right shoulder flex, ext, add, abd, IR, and ER, multiple sets of 5reps. Codmans. Began curr series, 4 directions. Total minutes of Exercise: 30mins Manual Therapy: N/A HOME EXERCISE PROGRAM: scapular retraction, pendulum exercises, and PROM into shoulder flexion. Also given squeeze ball to work the right hand for swelling. - Charges Total Direct Minutes: 30mins Total Treatment Time: 50mins Procedures billed for this date of service:: CP, Estim unattended, EX2 Assessment: Patient progressed with exercise today. She is able to perform more with active assissted. Patient Education: Body/Joint mechanics, Home Exercise Program Patient demonstrates compliance with HEP?: Yes Short Term Goals Goal #1: Patient compliant with HEP. Goal to be met by: 06/17/16 Progress towards Goal:: Met Goal #2: PROM of right shoulder WFL's. Goal to be met by: 06/24/16 Progress towards Goal:: Progressing Goal #3: Right shoulder AROM 90 degrees flexion. Goal to be met by: 06/24/16 Progress towards Goal:: Not Met Goal #4: Patient with improved postural awareness. 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 Goal to be met by: 07/25/16 Goal #2: Score on UE functional scale improved to 50/80. Goal to be met by: 07/25/16 Goal #3: Pt able to use right UE for selfcare and light ADL's w/o difficulty. Goal to be met by: 07/25/16 Goal #4: Patient able to sleep at night w/o interruption from right shoulder pain. Goal to be met by: 07/25/16 Plan PLAN OF CARE EXPIRES ON:: 07/25/16 ORDER # VISITS AND/OR THROUGH DATE: 07/25/16 PLAN: Continue Plan of Care (Continue modalities and progress exercise.)
--- NOTE | 2016-06-23 16:07 | RS.OPPTDN ---
Subjective Date of Note: 06/23/16 Visit #: 10 Date of Evaluation: 06/10/16 Payer Source: MEDICARE Treatment Diagnosis: Right shoulder pain, shoulder stiffness, s/p right shoulder surgery Current Subjective/complaints:: Patient states that she is finding more mobility and improved bayron to PROM. Says she tried to put on a regular shirt on and could not do it yet. Pain Assessment - Pain Description Pain Location: right shoulder (anteriorally) Pain Description: Sharp, Aching Pain Description: "lightning bolt" down right LE. Current Pain Intensity: 09/10 - Treatment Modality: Electrical Stim Unattended Parameters/Method Applied: hivolt 4 small pads @ 135 pk volts x 20 mins to the R shoulder Patient Position: Sitting - Heat/Cryotherapy Treatment: Cryotherapy Interventions - Exercise/Activities/Manual Therapy Exercises/Activities: 30mins Continued PROM and AAROM with patient in sitting. ROM of the right elbow and wrist. Patient holds right UE in mid range when going through right shoulder ROM. Active shoulder shrugs and scapular retraction. Active elbow and wrist motions x 15. Continued with Isometric right shoulder flex, ext, add, abd, IR, and ER, multiple sets of 5reps. Codmans. Manual Therapy: N/A HOME EXERCISE PROGRAM: scapular retraction, pendulum exercises, and PROM into shoulder flexion. Also given squeeze ball to work the right hand for swelling. - Charges Total Direct Minutes: 30 Total Treatment Time: 50 Procedures billed for this date of service:: cp, estim (un), ex2 Assessment: Patient able to demo 145-150 degrees of passive shoulder flexion. ABD to 75 degrees, ER to 25 degrees. Improved tolerance to increasing passive motion, especially with flexion. Patient Education: Education of diagnosis, Body/Joint mechanics, Home Exercise Program, Home Safety, Activity Modification, Education of Plan of Care Patient demonstrates compliance with HEP?: Yes Short Term Goals Goal #1: Patient compliant with HEP. Goal to be met by: 06/17/16 Progress towards Goal:: Met Goal #2: PROM of right shoulder WFL's. Goal to be met by: 06/24/16 Progress towards Goal:: Progressing Goal #3: Right shoulder AROM 90 degrees flexion. Goal to be met by: 06/24/16 Progress towards Goal:: Not Met Goal #4: Patient with improved postural awareness. Goal to be met by: 06/24/16 Progress towards Goal:: Progressing Retirement Goals Goal #1: Pt knows HEP and to continue ex's to maintain level of function at D/C. Goal to be met by: 07/25/16 Goal #2: Score on UE functional scale improved to 50/80. Goal to be met by: 07/25/16 Goal #3: Pt able to use right UE for selfcare and light ADL's w/o difficulty. Goal to be met by: 07/25/16 Goal #4: Patient able to sleep at night w/o interruption from right shoulder pain. Goal to be met by: 07/25/16 Plan PLAN OF CARE EXPIRES ON:: 07/25/16 ORDER # VISITS AND/OR THROUGH DATE: 07/25/16 PLAN: Progress Exercises
--- NOTE | 2016-06-29 11:28 | RS.OPPTDN ---
Subjective Date of Note: 06/27/16 Visit #: 11 Date of Evaluation: 06/10/16 Payer Source: MEDICARE Treatment Diagnosis: Right shoulder pain, shoulder stiffness, s/p right shoulder surgery Current Subjective/complaints:: Patient reports doing more active movement with the right shoulder at home. Pain Assessment - Pain Description Pain Location: right shoulder (anteriorally) Pain Description: Sharp, Aching Pain Description: "lightning bolt" down right LE. Current Pain Intensity: 09/10 - Treatment Modality: Electrical Stim Unattended ([id number] with Estim) Parameters/Method Applied: [id number] HVGC to 165p.v. 4 small pads cross currnet to the right shoulder joint with CP prior to EX. Patient Position: Sitting - Heat/Cryotherapy Treatment: Cryotherapy ([id number] with Estim ) Interventions - Exercise/Activities/Manual Therapy Exercises/Activities: 30mins Continued PROM and AAROM with patient in sitting. ROM of the right elbow and wrist. Patient assists with eccentric contraction with flex/ext. Active shoulder shrugs and scapular retraction. Continued with isometric right shoulder flex, ext, add, abd, IR, and ER, multiple sets of 5reps. Began wand for shoulder flexion, abd, and chest press overhead. Overhead shoulder flexion while holding a small therapy ball between hands. Total minutes of Exercise: 30mins Manual Therapy: N/A HOME EXERCISE PROGRAM: scapular retraction, pendulum exercises, and PROM into shoulder flexion. Also given squeeze ball to work the right hand for swelling. - Charges Total Direct Minutes: 30mins Total Treatment Time: 50mins Procedures billed for this date of service:: CP, Estim unattended, EX2 Assessment: Patient progressing with active assisted exercise. Patient Education: Home Exercise Program, Home Safety Patient demonstrates compliance with HEP?: Yes Short Term Goals Goal #1: Patient compliant with HEP. Goal to be met by: 06/17/16 Progress towards Goal:: Met Goal #2: PROM of right shoulder WFL's. Goal to be met by: 06/24/16 Progress towards Goal:: Progressing Goal #3: Right shoulder AROM 90 degrees flexion. Goal to be met by: 06/24/16 Progress towards Goal:: Progressing Goal #4: Patient with improved postural awareness. Goal to be met by: 06/24/16 Progress towards Goal:: Progressing Detention Goals Goal #1: Pt knows HEP and to continue ex's to maintain level of function at D/C. Goal to be met by: 07/25/16 Goal #2: Score on UE functional scale improved to 50/80. Goal to be met by: 07/25/16 Goal #3: Pt able to use right UE for selfcare and light ADL's w/o difficulty. Goal to be met by: 07/25/16 Goal #4: Patient able to sleep at night w/o interruption from right shoulder pain. Goal to be met by: 07/25/16 Progress towards goal: Progressing Plan PLAN OF CARE EXPIRES ON:: 07/25/16 ORDER # VISITS AND/OR THROUGH DATE: 07/25/16 PLAN: Continue Plan of Care
--- NOTE | 2016-06-29 15:05 | RS.OPPTDN ---
Subjective Date of Note: 06/29/16 Visit #: 12 Date of Evaluation: 06/10/16 Payer Source: MEDICARE Treatment Diagnosis: Right shoulder pain, shoulder stiffness, s/p right shoulder surgery Current Subjective/complaints:: Patient states she had increased pain yesterday and today. She says she has noticable improvement with mobility and feels her flexion is her "previous normal." Pain Assessment - Pain Description Pain Location: right shoulder (anteriorally) Pain Description: Sharp, Aching Pain Description: "lightning bolt" down right LE. Current Pain Intensity: 7-810 - Treatment Modality: Electrical Stim Unattended Parameters/Method Applied: hivolt 4 small pads prior to therex @ 165 pk volts x 20 mins to the R shoulder Patient Position: Sitting - Heat/Cryotherapy Treatment: Cryotherapy (UT and R shoulder) Interventions - Exercise/Activities/Manual Therapy Exercises/Activities: 30mins Continued PROM and AAROM with patient in sitting. ROM of the right elbow and wrist. Patient assists with eccentric contraction with flex/ext. Active shoulder shrugs and scapular retraction. Continued with isometric right shoulder flex, ext, add, abd, IR, and ER, multiple sets of 5reps. Continued with wand for shoulder flexion, abd, and chest press overhead. Overhead shoulder flexion while holding a small therapy ball between hands. Manual Therapy: N/A HOME EXERCISE PROGRAM: scapular retraction, pendulum exercises, and PROM into shoulder flexion. Also given squeeze ball to work the right hand for swelling. - Charges Total Direct Minutes: 30 Total Treatment Time: 50 Procedures billed for this date of service:: cp, estim (un), ex2 Assessment: Patient demonstrates full active assist shoulder flexion when compared to the L shoulder today. ER and abd bayron better today. She arrived with mod to severe pain to the R shoulder, but it was relieved with treatment today. Patient Education: Education of diagnosis, Body/Joint mechanics, Home Exercise Program, Home Safety, Activity Modification, Education of Plan of Care Patient demonstrates compliance with HEP?: Yes Short Term Goals Goal #1: Patient compliant with HEP. Goal to be met by: 06/17/16 Progress towards Goal:: Met Goal #2: PROM of right shoulder WFL's. Goal to be met by: 06/24/16 Progress towards Goal:: Progressing Goal #3: Right shoulder AROM 90 degrees flexion. Goal to be met by: 06/24/16 Progress towards Goal:: Progressing Goal #4: Patient with improved postural awareness. 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 Goal to be met by: 07/25/16 Goal #2: Score on UE functional scale improved to 50/80. Goal to be met by: 07/25/16 Goal #3: Pt able to use right UE for selfcare and light ADL's w/o difficulty. Goal to be met by: 07/25/16 Goal #4: Patient able to sleep at night w/o interruption from right shoulder pain. Goal to be met by: 07/25/16 Progress towards goal: Progressing Plan PLAN OF CARE EXPIRES ON:: 07/25/16 ORDER # VISITS AND/OR THROUGH DATE: 07/25/16 PLAN: Progress Exercises
--- NOTE | 2016-07-01 16:20 | RS.OPPTDN ---
Subjective Date of Note: 07/01/16 Visit #: 13 Date of Evaluation: 06/10/16 Payer Source: MEDICARE Treatment Diagnosis: Right shoulder pain, shoulder stiffness, s/p right shoulder surgery Current Subjective/complaints:: Patient reports improvement with incision healing. States she is working on basic HEP and motion is improving. States she was able to dress in a t-shirt today, as she has only worn tank tops this week. Pain Assessment - Pain Description Pain Location: right shoulder (anteriorally) Pain Description: Sharp, Aching Pain Description: "lightning bolt" down right LE. Current Pain Intensity: moderate - Treatment Modality: Electrical Stim Unattended Parameters/Method Applied: [id number] HVGC to 145p.v. with 4 small pads to the right shoulder joint with CP prior to EX. Patient Position: Sitting - Heat/Cryotherapy Treatment: Cryotherapy ([id number] with Estim) Interventions - Exercise/Activities/Manual Therapy Exercises/Activities: 30mins Continued PROM and AAROM with patient in sitting. ROM of the right elbow and wrist. Patient assists with eccentric contraction with flex/ext. Active shoulder shrugs and scapular retraction. Continued with isometric right shoulder flex, ext, add, abd, IR, and ER. Wand for shoulder flexion, abd, and chest press overhead. Overhead shoulder flexion and forward chest press while holding a small therapy ball between hands. Red theraband for scapular retraction. Began ball on the wall and wall walking. Ended with additional PROM. Total minutes of Exercise: 30mins Manual Therapy: N/A HOME EXERCISE PROGRAM: scapular retraction, pendulum exercises, and PROM into shoulder flexion. Also given squeeze ball to work the right hand for swelling. - Charges Total Direct Minutes: 30mins Total Treatment Time: 50mins Procedures billed for this date of service:: CP, Estim unattended, EX2 Assessment: Patient progressing with exercise and with AROM. Patient Education: Home Exercise Program Patient demonstrates compliance with HEP?: Yes Short Term Goals Goal #1: Patient compliant with HEP. Goal to be met by: 06/17/16 Progress towards Goal:: Met Goal #2: PROM of right shoulder WFL's. Goal to be met by: 06/24/16 Progress towards Goal:: Progressing Goal #3: Right shoulder AROM 90 degrees flexion. Goal to be met by: 06/24/16 Progress towards Goal:: Progressing Goal #4: Patient with improved postural awareness. 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 Goal to be met by: 07/25/16 Goal #2: Score on UE functional scale improved to 50/80. Goal to be met by: 07/25/16 Goal #3: Pt able to use right UE for selfcare and light ADL's w/o difficulty. Goal to be met by: 07/25/16 Progress towards goal: Progressing Goal #4: Patient able to sleep at night w/o interruption from right shoulder pain. Goal to be met by: 07/25/16 Progress towards goal: Progressing Plan PLAN OF CARE EXPIRES ON:: 07/25/16 ORDER # VISITS AND/OR THROUGH DATE: 07/25/16 PLAN: Continue Plan of Care (Continue modalities and progress exercise to reduce pain and increase functional activity level.)
== END ==
PROVIDERS: ATTEND Orthopaedic Surgery
DX: M75.01 Adhesive capsulitis of right shoulder (principal)

== ENCOUNTER 2016-07-28 14:00 | Outpatient (RCR) ==
[2015-11-25 07:50] VITALS: BMI 26.5
--- NOTE | 2016-07-05 09:11 | RS.OPPTDN ---
Subjective Date of Note: 07/05/16 Visit #: 14 Date of Evaluation: 06/10/16 Payer Source: MEDICARE Treatment Diagnosis: Right shoulder pain, shoulder stiffness, s/p right shoulder surgery Current Subjective/complaints:: Patient feels the R shoulder is slowly getting better,is doing her HEP. Pain Assessment - Pain Description Pain Location: right shoulder (anteriorally) Pain Description: "lightning bolt" down right LE. Current Pain Intensity: 4/10 - Treatment Modality: Electrical Stim Unattended Parameters/Method Applied: 20 mins. high volt to R shoulder,one channel @ 260 pv ,one electrode to upper trap muscle belly,one electrode to RTC insertion site. Patient Position: Sitting - Heat/Cryotherapy Treatment: Cryotherapy (concurrent with e-stim) Interventions - Exercise/Activities/Manual Therapy Exercises/Activities: 30mins. AAROM to AROM ,isometrics all directions,postural pullbacks,shoulder circles,progressed to assisted circumduction.Standing ball on wall exercises,ended session with overhead throwing the ball with both UE's, then R UE only,then bowling motion.HEP review. Total minutes of Exercise: 30 Manual Therapy: N/A Total minutes of Manual Therapy: 0 HOME EXERCISE PROGRAM: scapular retraction, pendulum exercises, and PROM into shoulder flexion. Also given squeeze ball to work the right hand for swelling. - Charges Total Direct Minutes: 30 Total Treatment Time: 50 Procedures billed for this date of service:: cp,e-stim,ex 2 Assessment: Patient dasilva sincreased active motion ,good resistance offered with isometrics.She demos she is able to reach behind her head more easily.She still has moderate difficulty with reaching behind her back. Patient Education: Education of diagnosis, Body/Joint mechanics, Home Exercise Program, Home Safety, Activity Modification, Education of Plan of Care Patient demonstrates compliance with HEP?: Yes Short Term Goals Goal #1: Patient compliant with HEP. Goal to be met by: 06/17/16 Progress towards Goal:: Met Goal #2: PROM of right shoulder WFL's. Goal to be met by: 06/24/16 Progress towards Goal:: Progressing Goal #3: Right shoulder AROM 90 degrees flexion. Goal to be met by: 06/24/16 Progress towards Goal:: Progressing Goal #4: Patient with improved postural awareness. Goal to be met by: 06/24/16 Progress towards Goal:: Progressing Shelter Goals Goal #1: Pt knows HEP and to continue ex's to maintain level of function at D/C. Goal to be met by: 07/25/16 Goal #2: Score on UE functional scale improved to 50/80. Goal to be met by: 07/25/16 Goal #3: Pt able to use right UE for selfcare and light ADL's w/o difficulty. Goal to be met by: 07/25/16 Progress towards goal: Progressing Goal #4: Patient able to sleep at night w/o interruption from right shoulder pain. Goal to be met by: 07/25/16 Progress towards goal: Progressing Plan PLAN OF CARE EXPIRES ON:: 07/25/16 ORDER # VISITS AND/OR THROUGH DATE: 07/25/16 PLAN: Continue Plan of Care
--- NOTE | 2016-07-06 16:31 | RS.OPPTDN ---
Subjective Date of Note: 07/06/16 Visit #: 15 Date of Evaluation: 06/10/16 Payer Source: MEDICARE Treatment Diagnosis: Right shoulder pain, shoulder stiffness, s/p right shoulder surgery Current Subjective/complaints:: Patient reports she is increasing her HEP. States her has installed her shoulder pulleys and she is using them daily. Pain Assessment - Pain Description Pain Location: right shoulder (anteriorally) Pain Description: sharp at end range Current Pain Intensity: /10 - Treatment Modality: Electrical Stim Unattended Parameters/Method Applied: [id number] HVGC to 145p.v. with 4 small pads to the right shoulder joint with CP prior to EX. Patient in sitting. Patient Position: Sitting - Heat/Cryotherapy Treatment: Cryotherapy ([id number] with Estim ) Interventions - Exercise/Activities/Manual Therapy Exercises/Activities: 30mins. AAROM to AROM ,isometrics all directions. Red theraband for postural pullbacks, 3s/10reps. Yellow theraband for bilateral shoulder ER, 3s/10reps. 3# wand for overhead flexion and chest press. Wall walking. Total minutes of Exercise: 30mins Manual Therapy: N/A HOME EXERCISE PROGRAM: scapular retraction, pendulum exercises, and PROM into shoulder flexion. Also given squeeze ball to work the right hand for swelling. - Charges Total Direct Minutes: 30mins Total Treatment Time: 50mins Procedures billed for this date of service:: CP, Estim unattended, EX2 Assessment: Progressing with strengthening above shoulder height. Patient Education: Home Exercise Program Patient demonstrates compliance with HEP?: Yes Short Term Goals Goal #1: Patient compliant with HEP. Goal to be met by: 06/17/16 Progress towards Goal:: Met Goal #2: PROM of right shoulder WFL's. Goal to be met by: 06/24/16 Progress towards Goal:: Progressing Goal #3: Right shoulder AROM 90 degrees flexion. Goal to be met by: 06/24/16 Progress towards Goal:: Met Goal #4: Patient with improved postural awareness. 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 Goal to be met by: 07/25/16 Goal #2: Score on UE functional scale improved to 50/80. Goal to be met by: 07/25/16 Goal #3: Pt able to use right UE for selfcare and light ADL's w/o difficulty. Goal to be met by: 07/25/16 Progress towards goal: Progressing Goal #4: Patient able to sleep at night w/o interruption from right shoulder pain. Goal to be met by: 07/25/16 Progress towards goal: Progressing Plan PLAN OF CARE EXPIRES ON:: 07/25/16 ORDER # VISITS AND/OR THROUGH DATE: 07/25/16 PLAN: Continue Plan of Care
--- NOTE | 2016-07-08 16:16 | RS.OPPTDN ---
Subjective Date of Note: 07/08/16 Visit #: 16 Date of Evaluation: 06/10/16 Payer Source: MEDICARE Treatment Diagnosis: Right shoulder pain, shoulder stiffness, s/p right shoulder surgery Current Subjective/complaints:: Patient reports she is progressing well with HEP. Pain Assessment - Pain Description Pain Location: right shoulder (anteriorally) Pain Description: sharp at end range Current Pain Intensity: 4/10 - Treatment Modality: Electrical Stim Unattended Parameters/Method Applied: [id number] HVGC to 145p.v. with 4 small pads to the right shoulder joint with CP. Patient in sitting. Patient Position: Sitting - Heat/Cryotherapy Treatment: Cryotherapy ([id number] with Estim ) Interventions - Exercise/Activities/Manual Therapy Exercises/Activities: 30mins. PROM and AAROM. Isometrics all directions. Green theraband for postural pullbacks. Yellow theraband for bilateral shoulder ER, 3s/10reps. 3# wand for overhead flexion and chest press. Began resistive right shoulder flexion and abduction with 1#, multiple sets of 5 reps. Ended with additional PROM. Total minutes of Exercise: 30mins Manual Therapy: N/A HOME EXERCISE PROGRAM: scapular retraction, pendulum exercises, and PROM into shoulder flexion. Also given squeeze ball to work the right hand for swelling. - Objective Findings Observations,measurements,etc.: Right shoulder flexion to 117 degrees with wand exercise. - Charges Total Direct Minutes: 30mins Total Treatment Time: 50mins Procedures billed for this date of service:: CP, Estim unattended, EX2 Assessment: Patient progressing with AAROM and with HEP. Patient Education: Home Exercise Program, Home Safety Patient demonstrates compliance with HEP?: Yes Short Term Goals Goal #1: Patient compliant with HEP. Goal to be met by: 06/17/16 Progress towards Goal:: Met Goal #2: PROM of right shoulder WFL's. Goal to be met by: 06/24/16 Progress towards Goal:: Progressing Goal #3: Right shoulder AROM 90 degrees flexion. Goal to be met by: 06/24/16 Progress towards Goal:: Met Goal #4: Patient with improved postural awareness. Goal to be met by: 06/24/16 Progress towards Goal:: Progressing Alf Goals Goal #1: Pt knows HEP and to continue ex's to maintain level of function at D/C. Goal to be met by: 07/25/16 Progress towards goal: Progressing Goal #2: Score on UE functional scale improved to 50/80. Goal to be met by: 07/25/16 Goal #3: Pt able to use right UE for selfcare and light ADL's w/o difficulty. Goal to be met by: 07/25/16 Progress towards goal: Progressing Goal #4: Patient able to sleep at night w/o interruption from right shoulder pain. Goal to be met by: 07/25/16 Progress towards goal: Progressing Plan PLAN OF CARE EXPIRES ON:: 07/25/16 ORDER # VISITS AND/OR THROUGH DATE: 07/25/16 PLAN: Continue Plan of Care
--- NOTE | 2016-07-11 15:36 | RS.OPPTDN ---
Subjective Date of Note: 07/11/16 Visit #: 17 Date of Evaluation: 06/10/16 Payer Source: MEDICARE Treatment Diagnosis: Right shoulder pain, shoulder stiffness, s/p right shoulder surgery Current Subjective/complaints:: Patient reports she has some increased muscle soreness today. States she did some work outside yesterday. Pain Assessment - Pain Description Pain Location: right shoulder (anteriorally) Pain Description: sharp at end range Current Pain Intensity: 3/10 - Treatment Modality: Electrical Stim Unattended Parameters/Method Applied: [id number] HVGC to 145p.v. with 4 small pads to right shoulder joint cross current with CP prior to EX. Patient Position: Sitting - Heat/Cryotherapy Treatment: Cryotherapy ([id number] with Estim ) Interventions - Exercise/Activities/Manual Therapy Exercises/Activities: 30mins. PROM and AAROM. Isometrics all directions. Green theraband for postural pullbacks. Red theraband for right shoulder extension, forward press, IR, ER, and short flexion. 3# wand for overhead flexion and chest press. Resistive right shoulder flexion, scaption, and abduction with 1#, multiple sets of 5 reps. Began large ball on the wall with bilateral UE's and small ball for cw and ccw circles with right UE. Total minutes of Exercise: 30mins Manual Therapy: N/A HOME EXERCISE PROGRAM: scapular retraction, pendulum exercises, and PROM into shoulder flexion. Wand for flexion and abduction. Red theraband for pullbacks and yellow for bilateral ER. - Charges Total Direct Minutes: 30mins Total Treatment Time: 50mins Procedures billed for this date of service:: CP, Estim unattended, EX2 Assessment: Patient progressing with strengthening and with activities at home. Patient Education: Home Exercise Program, Home Safety Patient demonstrates compliance with HEP?: Yes Short Term Goals Goal #1: Patient compliant with HEP. Goal to be met by: 06/17/16 Progress towards Goal:: Met Goal #2: PROM of right shoulder WFL's. Goal to be met by: 06/24/16 Progress towards Goal:: Progressing Goal #3: Right shoulder AROM 90 degrees flexion. Goal to be met by: 06/24/16 Progress towards Goal:: Met Goal #4: Patient with improved postural awareness. Goal to be met by: 06/24/16 Progress towards Goal:: Met Fci Goals Goal #1: Pt knows HEP and to continue ex's to maintain level of function at D/C. Goal to be met by: 07/25/16 Progress towards goal: Progressing Goal #2: Score on UE functional scale improved to 50/80. Goal to be met by: 07/25/16 Goal #3: Pt able to use right UE for selfcare and light ADL's w/o difficulty. Goal to be met by: 07/25/16 Progress towards goal: Progressing Goal #4: Patient able to sleep at night w/o interruption from right shoulder pain. Goal to be met by: 07/25/16 Progress towards goal: Progressing Plan PLAN OF CARE EXPIRES ON:: 07/25/16 ORDER # VISITS AND/OR THROUGH DATE: 07/25/16 PLAN: Continue Plan of Care
--- NOTE | 2016-07-13 15:32 | RS.OPPTDN ---
Subjective Date of Note: 07/13/16 Visit #: 18 Date of Evaluation: 06/10/16 Payer Source: MEDICARE Treatment Diagnosis: Right shoulder pain, shoulder stiffness, s/p right shoulder surgery Current Subjective/complaints:: Patient reports she is doing better with AROM above shoulder height. Pain Assessment - Pain Description Pain Location: right shoulder (anteriorally) Pain Description: sharp at end range Current Pain Intensity: 0/10 at rest, mild to mod at end range - Treatment Modality: Electrical Stim Unattended Parameters/Method Applied: [id number] HVGC to 165p.v. to the right shoulder with CP prior to EX. Patient Position: Sitting - Heat/Cryotherapy Treatment: Cryotherapy ([id number] with Estim ) Interventions - Exercise/Activities/Manual Therapy Exercises/Activities: 30mins. PROM and AAROM. Isometrics all directions. Green theraband for postural pullbacks. Red theraband for right shoulder extension, forward press, IR, ER, and short flexion. 3# wand for overhead flexion and chest press. Resistive right shoulder flexion, scaption, and abduction with 1#, multiple sets of 5 reps. Ball on the wall with right UE's. Total minutes of Exercise: 30mins Manual Therapy: N/A HOME EXERCISE PROGRAM: scapular retraction, pendulum exercises, and PROM into shoulder flexion. Wand for flexion and abduction. Red theraband for pullbacks and yellow for bilateral ER. - Objective Findings Observations,measurements,etc.: Active right shoulder flexion 122, and AA right shoulder flexion to 131 degrees with wand exercise. - Charges Total Direct Minutes: 30mins Total Treatment Time: 50mins Procedures billed for this date of service:: CP, Estim unattended, EX2 Assessment: Patient progressing well with AROM of the right shoulder. Patient Education: Body/Joint mechanics, Home Exercise Program, Home Safety, Activity Modification Patient demonstrates compliance with HEP?: Yes Short Term Goals Goal #1: Patient compliant with HEP. Goal to be met by: 06/17/16 (100%) Progress towards Goal:: Met Goal #2: PROM of right shoulder WFL's. Goal to be met by: 06/24/16 (60%) Progress towards Goal:: Progressing Goal #3: Right shoulder AROM 90 degrees flexion. Goal to be met by: 06/24/16 (100%) Progress towards Goal:: Met Goal #4: Patient with improved postural awareness. 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 Goal to be met by: 07/25/16 (50%) Progress towards goal: Progressing Goal #2: Score on UE functional scale improved to 50/80. Goal to be met by: 07/25/16 Goal #3: Pt able to use right UE for selfcare and light ADL's w/o difficulty. Goal to be met by: 07/25/16 (80%) Progress towards goal: Progressing Goal #4: Patient able to sleep at night w/o interruption from right shoulder pain. Goal to be met by: 07/25/16 (75%) Progress towards goal: Progressing Plan PLAN OF CARE EXPIRES ON:: 07/25/16 ORDER # VISITS AND/OR THROUGH DATE: 07/25/16 PLAN: Continue Plan of Care
--- NOTE | 2016-07-15 15:14 | RS.OPPTDN ---
Subjective Date of Note: 07/15/16 Visit #: 19 Date of Evaluation: 06/10/16 Payer Source: MEDICARE Treatment Diagnosis: Right shoulder pain, shoulder stiffness, s/p right shoulder surgery Current Subjective/complaints:: Patient states she is working on all HEP. She says she wants to continue so that she could get max potential ROM/strength to her dominant hand. She says steering the car has become easier in which she has previously had to use her uninvolved arm. Pain Assessment - Pain Description Pain Location: right shoulder (anteriorally) Pain Description: sharp at end range Current Pain Intensity: 0/10 at rest, mild to mod at end range - Treatment Modality: Electrical Stim Unattended Parameters/Method Applied: 4 small pads @ 220-250 pk volts x 15 mins to the R shoulder uncrossed Patient Position: Sitting - Heat/Cryotherapy Treatment: Cryotherapy Interventions - Exercise/Activities/Manual Therapy Exercises/Activities: 30mins. PROM and AAROM. Isometrics all directions. Green theraband for postural pullbacks. Red theraband for right shoulder extension, forward press, IR, ER, and short flexion. 3# wand for overhead flexion and chest press. Resistive right shoulder flexion, scaption, and abduction with 1#, multiple sets of 5 reps. Ball on the wall with right UE's. Manual Therapy: N/A HOME EXERCISE PROGRAM: scapular retraction, pendulum exercises, and PROM into shoulder flexion. Wand for flexion and abduction. Red theraband for pullbacks and yellow for bilateral ER. - Charges Total Direct Minutes: 30 Total Treatment Time: 45 Procedures billed for this date of service:: cp, ex2, estim (un) Assessment: Patient progressing well with increased strengthening exercises and bayron to pain with stretching today. Patient Education: Education of diagnosis, Body/Joint mechanics, Home Exercise Program, Home Safety, Activity Modification, Education of Plan of Care Patient demonstrates compliance with HEP?: Yes Short Term Goals Goal #1: Patient compliant with HEP. Goal to be met by: 06/17/16 (100%) Progress towards Goal:: Met Goal #2: PROM of right shoulder WFL's. Goal to be met by: 06/24/16 (60%) Progress towards Goal:: Progressing Goal #3: Right shoulder AROM 90 degrees flexion. Goal to be met by: 06/24/16 (100%) Progress towards Goal:: Met Goal #4: Patient with improved postural awareness. Goal to be met by: 06/24/16 (100%) Progress towards Goal:: Met Usp Goals Goal #1: Pt knows HEP and to continue ex's to maintain level of function at D/C. Goal to be met by: 07/25/16 (50%) Progress towards goal: Progressing Goal #2: Score on UE functional scale improved to 50/80. Goal to be met by: 07/25/16 Goal #3: Pt able to use right UE for selfcare and light ADL's w/o difficulty. Goal to be met by: 07/25/16 (80%) Progress towards goal: Progressing Goal #4: Patient able to sleep at night w/o interruption from right shoulder pain. Goal to be met by: 07/25/16 (75%) Progress towards goal: Progressing Plan PLAN OF CARE EXPIRES ON:: 07/25/16 ORDER # VISITS AND/OR THROUGH DATE: 07/25/16 PLAN: Progress Exercises
--- NOTE | 2016-07-18 13:11 | RS.OPPTDN ---
Subjective Date of Note: 07/18/16 Visit #: 20 Date of Evaluation: 06/10/16 Payer Source: MEDICARE Treatment Diagnosis: Right shoulder pain, shoulder stiffness, s/p right shoulder surgery Current Subjective/complaints:: Patient expresses today is her last day of PT until her MD appt. first week of August. She says she will perform HEP more consistently, but also expresses she would like to continue therapy for a few more weeks. She says she has less pain and can tell she is gaining mobility. Pain Assessment - Pain Description Pain Location: right shoulder (anteriorally) Pain Description: sharp at end range Current Pain Intensity: 0/10 at rest, mild to mod at end range - Treatment Modality: Electrical Stim Unattended Parameters/Method Applied: 4 small pads @ 155-170 pk volts x 20 mins to the R shoulder and UT Patient Position: Sitting - Heat/Cryotherapy Treatment: Cryotherapy Interventions - Exercise/Activities/Manual Therapy Exercises/Activities: 30mins. PROM and AAROM. Isometrics all directions. Green theraband for postural pullbacks. Progressed to green theraband for right shoulder extension, forward press, IR, ER, and short flexion. 3# wand for overhead flexion and chest press. Resistive right shoulder flexion, scaption, and abduction with progressed to 2#, multiple sets of 5 reps. Ball on the wall with right UE's. Wall slides for flexion and horizontal abd/add. Measurements and UE Functional Scale reassessed. Manual Therapy: N/A HOME EXERCISE PROGRAM: scapular retraction, pendulum exercises, and PROM into shoulder flexion. Wand for flexion and abduction. Red theraband for pullbacks and yellow for bilateral ER. - Objective Findings Observations,measurements,etc.: 31/80 or 62% impairment compared to eval @ 0/80 or 100% impairment - Charges Total Direct Minutes: 30 Total Treatment Time: 50 Procedures billed for this date of service:: cp, estim (un), ex2 Assessment: Patient has demo progress verbally, through presentation, and through UE Functional Scale. She demo PROM WFL all directions, Active flexion @ 137 degrees, abd @ 89 degrees, ER ~45 degrees and IR ~30 degrees. Patient Education: Education of diagnosis, Body/Joint mechanics, Home Exercise Program, Home Safety, Activity Modification, Education of Plan of Care Patient demonstrates compliance with HEP?: Yes Short Term Goals Goal #1: Patient compliant with HEP. Goal to be met by: 06/17/16 (100%) Progress towards Goal:: Met Goal #2: PROM of right shoulder WFL's. Goal to be met by: 06/24/16 (60%) Progress towards Goal:: Met Goal #3: Right shoulder AROM 90 degrees flexion. Goal to be met by: 06/24/16 (100%) Progress towards Goal:: Met Goal #4: Patient with improved postural awareness. Goal to be met by: 06/24/16 (100%) Progress towards Goal:: Met Detention Goals Goal #1: Pt knows HEP and to continue ex's to maintain level of function at D/C. Goal to be met by: 07/25/16 (50%) Progress towards goal: Progressing Goal #2: Score on UE functional scale improved to 50/80. Goal to be met by: 07/25/16 Progress towards goal: Progressing Comments: Goal #3: Pt able to use right UE for selfcare and light ADL's w/o difficulty. Goal to be met by: 07/25/16 (80%) Progress towards goal: Progressing Goal #4: Patient able to sleep at night w/o interruption from right shoulder pain. Goal to be met by: 07/25/16 (75%) Progress towards goal: Progressing Plan PLAN OF CARE EXPIRES ON:: 07/25/16 ORDER # VISITS AND/OR THROUGH DATE: 07/25/16 Comments:: Patient has follow up on August 03 with ortho. She may benefit from extending PT until her MD appt.
--- NOTE | 2016-07-21 10:17 | RS.OPPTDN ---
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 States it is gettting better but still sore. Patient presented to department earlier this week with orders to continue therapy. Pain Assessment - Pain Description Pain Location: right shoulder (anteriorally) Pain Description: sharp at end range Current Pain Intensity: sore with movement - Treatment Modality: Electrical Stim Unattended Parameters/Method Applied: [id number] HVGC to 135p.v. with 4 small pads to right shoulder joint with CP prior to EX. Patient Position: Sitting - Heat/Cryotherapy Treatment: Cryotherapy ([id number] with Estim ) Interventions - Exercise/Activities/Manual Therapy Exercises/Activities: 25mins. Focus on PROM and AAROM today. Isometrics into extension, adduction, and abduction. Wall walking and wall slides for flexion, abduction, and IR/ER. Reviewed towel stretch behind back to encourage IR and doorway stretch for ER. Total minutes of Exercise: 25mins Manual Therapy: N/A HOME EXERCISE PROGRAM: scapular retraction, pendulum exercises, and PROM into shoulder flexion. Wand for flexion and abduction. Red theraband for pullbacks and yellow for bilateral ER. - Charges Total Direct Minutes: 25mins Total Treatment Time: 45mins Procedures billed for this date of service:: CP, Estim unattended, EX2 Assessment: Patient with increase sorenees and joint stiffness after incident where she jerked her right UE back into extension. She responded well to modalities and ROM today. Will resume strengthening next session as tolerated. Patient Education: Education of diagnosis, Home Exercise Program, Home Safety, Activity Modification Comments: Advised patient to rest and work on gentle ROM today. Patient demonstrates compliance with HEP?: Yes Short Term Goals Goal #1: Patient compliant with HEP. Goal to be met by: 06/17/16 (100%) Progress towards Goal:: Met Goal #2: PROM of right shoulder WFL's. Goal to be met by: 06/24/16 (60%) Progress towards Goal:: Met Goal #3: Right shoulder AROM 90 degrees flexion. Goal to be met by: 06/24/16 (100%) Progress towards Goal:: Met Goal #4: Patient with improved postural awareness. Goal to be met by: 06/24/16 (100%) Progress towards Goal:: Met [facility] Goals Goal #1: Pt knows HEP and to continue ex's to maintain level of function at D/C. Goal to be met by: 08/19/16 (50%) Progress towards goal: Progressing Goal #2: Score on UE functional scale improved to 50/80. Goal to be met by: 08/19/16 Progress towards goal: Progressing Goal #3: Pt able to use right UE for selfcare and light ADL's w/o difficulty. Goal to be met by: 08/19/16 (80%) Progress towards goal: Progressing Goal #4: Patient able to sleep at night w/o interruption from right shoulder pain. Goal to be met by: 08/19/16 (75%) Progress towards goal: Progressing Plan PLAN OF CARE EXPIRES ON:: 08/19/16 ORDER # VISITS AND/OR THROUGH DATE: 08/19/16 PLAN: Continue Plan of Care
--- NOTE | 2016-07-22 10:37 | RS.OPPTDN ---
Subjective Date of Note: 07/22/16 Visit #: 22 Date of Evaluation: 06/10/16 Payer Source: MEDICARE Treatment Diagnosis: Right shoulder pain, shoulder stiffness, s/p right shoulder surgery Current Subjective/complaints:: Patient reports right shoulder is much better today. States she noticed it felt like it "had a fever". States she used ice off and on last evening which helped. Pain Assessment - Pain Description Pain Location: right shoulder (anteriorally) Pain Description: sharp at end range Current Pain Intensity: sore with movement - Treatment Modality: Electrical Stim Unattended Parameters/Method Applied: [id number] HVGC to 165p.v. with 4 small pads to the right shoulder with CP prior to EX. Patient Position: Sitting - Heat/Cryotherapy Treatment: Cryotherapy ([id number] with Estim ) Interventions - Exercise/Activities/Manual Therapy Exercises/Activities: 25mins. PROM and AAROM to right shoulder. Resumed strengthening with 3# wand for bilateral shoulder flexion, chest press, and short abduction. 1# for right shoulder flexion and abduction, short ranges, 4s/ 5reps each. Isometrics into extension, adduction, and abduction. Squeezing ball between hands while performing overhead press. Wall walking and ball on wall. Total minutes of Exercise: 25mins Manual Therapy: N/A HOME EXERCISE PROGRAM: scapular retraction, pendulum exercises, and PROM into shoulder flexion. Wand for flexion and abduction. Red theraband for pullbacks and yellow for bilateral ER. - Charges Total Direct Minutes: 25mins Total Treatment Time: 45mins Procedures billed for this date of service:: CP, Estim unattended, EX2 Assessment: Patient progressing back to strengthening exercise today following injury and increased patient earlier this week. Patient Education: Home Exercise Program Patient demonstrates compliance with HEP?: Yes Short Term Goals Goal #1: Patient compliant with HEP. Goal to be met by: 06/17/16 (100%) Progress towards Goal:: Met Goal #2: PROM of right shoulder WFL's. Goal to be met by: 06/24/16 (60%) Progress towards Goal:: Met Goal #3: Right shoulder AROM 90 degrees flexion. Goal to be met by: 06/24/16 (100%) Progress towards Goal:: Met Goal #4: Patient with improved postural awareness. Goal to be met by: 06/24/16 (100%) Progress towards Goal:: Met [employer] Manager Goals Goal #1: Pt knows HEP and to continue ex's to maintain level of function at D/C. Goal to be met by: 08/19/16 (50%) Progress towards goal: Progressing Goal #2: Score on UE functional scale improved to 50/80. Goal to be met by: 08/19/16 Progress towards goal: Progressing Goal #3: Pt able to use right UE for selfcare and light ADL's w/o difficulty. Goal to be met by: 08/19/16 (80%) Progress towards goal: Progressing Goal #4: Patient able to sleep at night w/o interruption from right shoulder pain. Goal to be met by: 08/19/16 (75%) Progress towards goal: Progressing Plan PLAN OF CARE EXPIRES ON:: 08/19/16 ORDER # VISITS AND/OR THROUGH DATE: 08/19/16 PLAN: Continue Plan of Care
--- NOTE | 2016-07-25 15:09 | RS.OPPTDN ---
Subjective Date of Note: 07/25/16 Visit #: 23 Date of Evaluation: 06/10/16 Payer Source: MEDICARE Treatment Diagnosis: Right shoulder pain, shoulder stiffness, s/p right shoulder surgery Current Subjective/complaints:: Patient reports increased right shoulder soreness after increasing exercise last evening. Pain Assessment - Pain Description Pain Location: right shoulder (anteriorally) Pain Description: sharp at end range Current Pain Intensity: sore with movement - Treatment Modality: Electrical Stim Unattended Parameters/Method Applied: [id number] HVGC to 135p.v. with 4 small pads to the right shoulder with CP. Patient Position: Sitting - Heat/Cryotherapy Treatment: Cryotherapy ([id number] with Estim ) Interventions - Exercise/Activities/Manual Therapy Exercises/Activities: 25mins. PROM and AAROM to right shoulder. 3# wand for bilateral shoulder flexion, chest press, and short abduction. 2# dumbell for right shoulder flexion and abduction, short ranges, 4s/5reps each. Isometrics into flexion, extension, adduction, abduction, IR and ER. Red theraband for right shoulder IR and ER, then bilateral shoulder ER with red theraband. Wall walking and ball on wall. Total minutes of Exercise: 25mins Manual Therapy: N/A HOME EXERCISE PROGRAM: scapular retraction, pendulum exercises, and PROM into shoulder flexion. Wand for flexion and abduction. Red theraband for pullbacks and yellow for bilateral ER. - Charges Total Direct Minutes: 25mins Total Treatment Time: 45mins Procedures billed for this date of service:: CP, Estim unattended, EX2 Assessment: Patient with exacerbation of joint soreness after increasing exercise. Patient Education: Body/Joint mechanics, Home Exercise Program, Activity Modification Patient demonstrates compliance with HEP?: Yes Short Term Goals Goal #1: Patient compliant with HEP. Goal to be met by: 06/17/16 (100%) Progress towards Goal:: Met Goal #2: PROM of right shoulder WFL's. Goal to be met by: 06/24/16 (60%) Progress towards Goal:: Met Goal #3: Right shoulder AROM 90 degrees flexion. Goal to be met by: 06/24/16 (100%) Progress towards Goal:: Met Goal #4: Patient with improved postural awareness. Goal to be met by: 06/24/16 (100%) Progress towards Goal:: Met [employer] Teachers Goals Goal #1: Pt knows HEP and to continue ex's to maintain level of function at D/C. Goal to be met by: 08/19/16 (50%) Progress towards goal: Progressing Goal #2: Score on UE functional scale improved to 50/80. Goal to be met by: 08/19/16 Progress towards goal: Progressing Goal #3: Pt able to use right UE for selfcare and light ADL's w/o difficulty. Goal to be met by: 08/19/16 (80%) Progress towards goal: Progressing Goal #4: Patient able to sleep at night w/o interruption from right shoulder pain. Goal to be met by: 08/19/16 (75%) Progress towards goal: Progressing Plan PLAN OF CARE EXPIRES ON:: 08/19/16 ORDER # VISITS AND/OR THROUGH DATE: 08/19/16 PLAN: Continue Plan of Care
--- NOTE | 2016-08-02 08:03 | RS.OPPTDN ---
Subjective Date of Note: 07/28/16 Visit #: 24 Date of Evaluation: 06/10/16 Payer Source: MEDICARE Treatment Diagnosis: Right shoulder pain, shoulder stiffness, s/p right shoulder surgery Current Subjective/complaints:: Patient reports mild discomfort with general daily activities. States she took pain med before coming to therapy today. Reports she is working on HEP. Pain Assessment - Pain Description Pain Location: right shoulder (anteriorally) Pain Description: sharp at end range Current Pain Intensity: sore with movement Worst Pain Intensity: 7/10 with some resisitve exercise. - Treatment Modality: Electrical Stim Unattended Parameters/Method Applied: [id number] HVGC to 135p.v. with 4 small pads to the right shoulder joint cross current with CP prior to EX. Patient Position: Sitting Interventions - Exercise/Activities/Manual Therapy Exercises/Activities: 25mins. PROM and AAROM to right shoulder. 3# wand for bilateral shoulder flexion, chest press, and short abduction. 2# dumbell for right shoulder flexion and abduction, short ranges, 2s/10reps each. Isometrics into flexion, extension, adduction, abduction, IR and ER. Red theraband for right shoulder IR and ER, then bilateral shoulder ER with red theraband. Red theraband for scap retract 2s/10reps. Wall walking on finger ladder. Total minutes of Exercise: 25mins Manual Therapy: N/A HOME EXERCISE PROGRAM: scapular retraction, pendulum exercises, and PROM into shoulder flexion. Wand for flexion and abduction. Red theraband for pullbacks and yellow for bilateral ER. - Charges Total Direct Minutes: 25mins Total Treatment Time: 45mins Procedures billed for this date of service:: CP, Estim unattended, EX2 Assessment: Patient continues to increase AROM and ability to perform resistive exercises. Patient Education: Home Exercise Program Patient demonstrates compliance with HEP?: Yes Short Term Goals Goal #1: Patient compliant with HEP. Goal to be met by: 06/17/16 (100%) Progress towards Goal:: Met Goal #2: PROM of right shoulder WFL's. Goal to be met by: 06/24/16 (60%) Progress towards Goal:: Met Goal #3: Right shoulder AROM 90 degrees flexion. Goal to be met by: 06/24/16 (100%) Progress towards Goal:: Met Goal #4: Patient with improved postural awareness. Goal to be met by: 06/24/16 (100%) Progress towards Goal:: Met [facility] Goals Goal #1: Pt knows HEP and to continue ex's to maintain level of function at D/C. Goal to be met by: 08/19/16 (50%) Progress towards goal: Progressing Goal #2: Score on UE functional scale improved to 50/80. Goal to be met by: 08/19/16 Progress towards goal: Progressing Goal #3: Pt able to use right UE for selfcare and light ADL's w/o difficulty. Goal to be met by: 08/19/16 (80%) Progress towards goal: Progressing Goal #4: Patient able to sleep at night w/o interruption from right shoulder pain. Goal to be met by: 08/19/16 (75%) Progress towards goal: Progressing Plan PLAN OF CARE EXPIRES ON:: 08/19/16 ORDER # VISITS AND/OR THROUGH DATE: 08/19/16 PLAN: Continue Plan of Care
== END 2016-07-31 ==
PROVIDERS: ATTEND Orthopaedic Surgery
DX: M75.01 Adhesive capsulitis of right shoulder (principal)

== ENCOUNTER 2016-08-24 10:00 | Outpatient (RCR) ==
[2015-11-25 07:50] VITALS: BMI 26.5
--- NOTE | 2016-08-01 15:35 | RS.OPPTDN ---
Subjective Date of Note: 08/01/16 Visit #: 25 Date of Evaluation: 06/10/16 Payer Source: MEDICARE Treatment Diagnosis: Right shoulder pain, shoulder stiffness, s/p right shoulder surgery Current Subjective/complaints:: Patient says her pain is higher today. She says she has had pain extending to the R side of her neck. Reports she will be returning to her Ortho this Monday. Pain Assessment - Pain Description Pain Location: right shoulder (anteriorally) Pain Description: sharp at end range Current Pain Intensity: sore with movement - Treatment Modality: Electrical Stim Unattended Parameters/Method Applied: 4 small pads @ 155 pk volts x 20 mins to the R shoulder, R UT Patient Position: Sitting - Heat/Cryotherapy Treatment: Cryotherapy Interventions - Exercise/Activities/Manual Therapy Exercises/Activities: 25mins. PROM and AAROM to right shoulder. 3# wand for bilateral shoulder flexion, chest press, and short abduction. 2# dumbell for right shoulder flexion and abduction, short ranges, 2s/10reps each. Isometrics into flexion, extension, adduction, abduction, IR and ER. Red theraband for right shoulder IR and ER, then bilateral shoulder ER with red theraband. Red theraband for scap retract 2s/10reps. Wall walking on finger ladder. Manual Therapy: N/A HOME EXERCISE PROGRAM: scapular retraction, pendulum exercises, and PROM into shoulder flexion. Wand for flexion and abduction. Red theraband for pullbacks and yellow for bilateral ER. - Charges Total Direct Minutes: 25 Total Treatment Time: 45 Procedures billed for this date of service:: cp, estim (un), ex2 Assessment: Patient demo passive flexion/abd to WNL, actively, abd to 100 degrees and flexion to 135 degrees. IR still limited by approx 50%. Patient bayron increased strengthening and ROM today especially with abd before admitting pain. Patient Education: Education of diagnosis, Body/Joint mechanics, Home Exercise Program, Home Safety, Activity Modification, Education of Plan of Care Patient demonstrates compliance with HEP?: Yes Short Term Goals Goal #1: Patient compliant with HEP. Goal to be met by: 06/17/16 (100%) Progress towards Goal:: Met Goal #2: PROM of right shoulder WFL's. Goal to be met by: 06/24/16 Progress towards Goal:: Met Goal #3: Right shoulder AROM 90 degrees flexion. Goal to be met by: 06/24/16 (100%) Progress towards Goal:: Met Goal #4: Patient with improved postural awareness. Goal to be met by: 06/24/16 (100%) Progress towards Goal:: Met [facility] Goals Goal #1: Pt knows HEP and to continue ex's to maintain level of function at D/C. Goal to be met by: 08/19/16 (70%) Progress towards goal: Progressing Goal #2: Score on UE functional scale improved to 50/80. Goal to be met by: 08/19/16 Progress towards goal: Progressing Goal #3: Pt able to use right UE for selfcare and light ADL's w/o difficulty. Goal to be met by: 08/19/16 (80%) Progress towards goal: Progressing Goal #4: Patient able to sleep at night w/o interruption from right shoulder pain. Goal to be met by: 08/19/16 (75%) Progress towards goal: Progressing Plan PLAN OF CARE EXPIRES ON:: 08/19/16 ORDER # VISITS AND/OR THROUGH DATE: 08/19/16 PLAN: Progress Exercises (Patient to follow up with ortho 5-3-17)
--- NOTE | 2016-08-10 16:03 | RS.OPPTDN ---
Subjective Date of Note: 08/10/16 Visit #: 26 Date of Evaluation: 06/10/16 Payer Source: MEDICARE Treatment Diagnosis: Right shoulder pain, shoulder stiffness, s/p right shoulder surgery Current Subjective/complaints:: Patient says she has a continuation order for 1- 2 x per week for 4 weeks. She will return to her MD in 6 weeks. She says over the weekend, she was hit with a rock to her R collerbone area from her mowing. She admits increased soreness and bruising. She says she has been using heat instead of ice to the shoulder and reports relief. Pain Assessment - Pain Description Pain Location: right shoulder (anteriorally) Pain Description: sharp at end range Current Pain Intensity: sore with movement Interventions - Exercise/Activities/Manual Therapy Exercises/Activities: 38mins. PROM and AAROM to right shoulder. 3# wand for bilateral shoulder flexion, chest press, and short abduction. 2# dumbell for right shoulder flexion and abduction, short ranges, 2s/10reps each. Isometrics into flexion, extension, adduction, abduction, IR and ER. Red theraband for right shoulder IR and ER, then bilateral shoulder ER with red theraband. Red theraband for scap retract 2s/10reps. 2# wrist motions and elbow motions, 1# for standing shoulder flexion, abd, horizontal abd/add all x 10. Wall walking on finger ladder. Manual Therapy: N/A HOME EXERCISE PROGRAM: scapular retraction, pendulum exercises, and PROM into shoulder flexion. Wand for flexion and abduction. Red theraband for pullbacks and yellow for bilateral ER. - Charges Total Direct Minutes: 38 Total Treatment Time: 38 Procedures billed for this date of service:: ex3 Assessment: Patient has bruising to just below the R clavicle due to rock hitting her over the weekend. She bayron weaning from the modalities and just receiving/performing therex as she only has 4 sessions to progress with continuation order. Passively able to achieve full flexion and near 170 degrees abd. Patient Education: Education of diagnosis, Body/Joint mechanics, Home Exercise Program, Home Safety, Activity Modification, Education of Plan of Care Patient demonstrates compliance with HEP?: Yes Short Term Goals Goal #1: Patient compliant with HEP. Goal to be met by: 06/17/16 (100%) Progress towards Goal:: Met Goal #2: PROM of right shoulder WFL's. Goal to be met by: 06/24/16 Progress towards Goal:: Met Goal #3: Right shoulder AROM 90 degrees flexion. Goal to be met by: 06/24/16 (100%) Progress towards Goal:: Met Goal #4: Patient with improved postural awareness. Goal to be met by: 06/24/16 (100%) Progress towards Goal:: Met Strategic Partnership Manager Goals Goal #1: Pt knows HEP and to continue ex's to maintain level of function at D/C. Goal to be met by: 08/19/16 (70%) Progress towards goal: Progressing Goal #2: Score on UE functional scale improved to 50/80. Goal to be met by: 08/19/16 Progress towards goal: Progressing Goal #3: Pt able to use right UE for selfcare and light ADL's w/o difficulty. Goal to be met by: 08/19/16 (80%) Progress towards goal: Progressing Goal #4: Patient able to sleep at night w/o interruption from right shoulder pain. Goal to be met by: 08/19/16 (75%) Progress towards goal: Progressing Plan PLAN OF CARE EXPIRES ON:: 09/02/16 ORDER # VISITS AND/OR THROUGH DATE: 09/02/16, 1-2 x 4 PLAN: Progress Exercises
--- NOTE | 2016-08-17 15:55 | RS.OPPTDN ---
Subjective Date of Note: 08/17/16 Visit #: 27 Date of Evaluation: 06/10/16 Payer Source: MEDICARE Treatment Diagnosis: Right shoulder pain, shoulder stiffness, s/p right shoulder surgery Current Subjective/complaints:: Patient denies any increase in shoulder pain following last week's session of progressive exercise only. She c/o increased pain to the R shoulder yesterday for no known reason. Pain Assessment - Pain Description Pain Location: right shoulder (anteriorally) Pain Description: sharp at end range Current Pain Intensity: sore with movement Interventions - Exercise/Activities/Manual Therapy Exercises/Activities: 38mins. PROM and AAROM to right shoulder. Increased to 4# wand for bilateral shoulder flexion, chest press, and short abduction. 2# dumbell for right shoulder flexion and abduction, short ranges, 2s/10reps each. Isometrics into flexion, extension, adduction, abduction, IR and ER. Red theraband for right shoulder IR and ER, then bilateral shoulder ER with red theraband. Green theraband for scap retract 2s/10reps. 2# wrist motions and elbow motions, 1# for standing shoulder flexion, abd, horizontal abd/add all x 10. Shelf reach for 2 1/2# from trunk level to overhead 2/10. Ball on the wall for clockwise and counter clockwise x 10. UBE x 3 mins for/retro. Manual Therapy: N/A HOME EXERCISE PROGRAM: scapular retraction, pendulum exercises, and PROM into shoulder flexion. Wand for flexion and abduction. Red theraband for pullbacks and yellow for bilateral ER. - Charges Total Direct Minutes: 38 Total Treatment Time: 38 Procedures billed for this date of service:: ex3 Assessment: Patient improved with strength and endurance with all repetitive activities. She recently had increased pain to the R shoulder yesterday allowing her to take a pain pill. This was the first time in one week. Pain is quite low now and only with end range stretching. Patient Education: Education of diagnosis, Body/Joint mechanics, Home Exercise Program, Home Safety, Activity Modification, Education of Plan of Care Patient demonstrates compliance with HEP?: Yes Short Term Goals Goal #1: Patient compliant with HEP. Goal to be met by: 06/17/16 (100%) Progress towards Goal:: Met Goal #2: PROM of right shoulder WFL's. Goal to be met by: 06/24/16 Progress towards Goal:: Met Goal #3: Right shoulder AROM 90 degrees flexion. Goal to be met by: 06/24/16 (100%) Progress towards Goal:: Met Goal #4: Patient with improved postural awareness. Goal to be met by: 06/24/16 (100%) Progress towards Goal:: Met [employer] Worker Goals Goal #1: Pt knows HEP and to continue ex's to maintain level of function at D/C. Goal to be met by: 09/02/16 (70%) Progress towards goal: Progressing Goal #2: Score on UE functional scale improved to 50/80. Goal to be met by: 09/02/16 Progress towards goal: Progressing Comments: Reassess next week Goal #3: Pt able to use right UE for selfcare and light ADL's w/o difficulty. Goal to be met by: 09/02/16 (80%) Progress towards goal: Progressing Goal #4: Patient able to sleep at night w/o interruption from right shoulder pain. Goal to be met by: 09/02/16 (75%) Progress towards goal: Progressing Plan PLAN OF CARE EXPIRES ON:: 09/02/16 ORDER # VISITS AND/OR THROUGH DATE: 09/02/16, 1-2 x 4 with cont order on (08/03/16 ) PLAN: Progress Exercises
--- NOTE | 2016-08-24 13:23 | RS.OPPTDN ---
Subjective Date of Note: 08/24/16 Visit #: 28 Date of Evaluation: 06/10/16 Payer Source: MEDICARE Treatment Diagnosis: Right shoulder pain, shoulder stiffness, s/p right shoulder surgery Current Subjective/complaints:: Patient says she has been able to clean more at home with heavier tasks. She may take a pain pill after those tasks and continues to take one prior to PT session (once per week). She admits stiffness and ache that is running up to the R side of the neck. Patient says she is using a stationary bike at home which also has arms for upper body. Pain Assessment - Pain Description Pain Location: right shoulder (anteriorally) Pain Description: sharp at end range Current Pain Intensity: sore with movement - Heat/Cryotherapy Treatment: Hot Pack (20 mins to the R shoulder in sitting) Interventions - Exercise/Activities/Manual Therapy Exercises/Activities: 38mins. AAROM to right shoulder. Increased to 5# wand for bilateral shoulder flexion, chest press, and short abduction. 2# dumbell for right shoulder flexion and abduction, short ranges, 2s/10reps each. Red theraband for right shoulder IR and ER, then bilateral shoulder ER with red theraband. Green theraband for scap retract 2s/10reps. Increased to 3# wrist motions and elbow motions, 2# for standing shoulder flexion, abd, horizontal abd /add all x 10. Shelf reach for (increased to)3# from trunk level to overhead 2/ 10. Ball on the wall for clockwise and counter clockwise x 10 using 1# cuff weight. Manual Therapy: N/A HOME EXERCISE PROGRAM: scapular retraction, pendulum exercises, and PROM into shoulder flexion. Wand for flexion and abduction. Red theraband for pullbacks and yellow for bilateral ER. - Charges Total Direct Minutes: 38 Total Treatment Time: 38 Procedures billed for this date of service:: ex3 Assessment: Alix is progressing with all therex well improving control with eccentric contractions for the RUE. She primarily takes pain meds once per week (on therapy days) or unless she has done heavy housework. She is excelling at overhead weight tasks here quite well. Patient Education: Education of diagnosis, Body/Joint mechanics, Home Exercise Program, Home Safety, Activity Modification, Education of Plan of Care Patient demonstrates compliance with HEP?: Yes Short Term Goals Goal #1: Patient compliant with HEP. Goal to be met by: 06/17/16 (100%) Progress towards Goal:: Met Goal #2: PROM of right shoulder WFL's. Goal to be met by: 06/24/16 Progress towards Goal:: Met Goal #3: Right shoulder AROM 90 degrees flexion. Goal to be met by: 06/24/16 (100%) Progress towards Goal:: Met Goal #4: Patient with improved postural awareness. Goal to be met by: 06/24/16 (100%) Progress towards Goal:: Met Application Penetration Tester Goals Goal #1: Pt knows HEP and to continue ex's to maintain level of function at D/C. Goal to be met by: 09/02/16 (70%) Progress towards goal: Progressing Goal #2: Score on UE functional scale improved to 50/80. Goal to be met by: 09/02/16 Progress towards goal: Progressing Goal #3: Pt able to use right UE for selfcare and light ADL's w/o difficulty. Goal to be met by: 09/02/16 (80%) Progress towards goal: Progressing Goal #4: Patient able to sleep at night w/o interruption from right shoulder pain. Goal to be met by: 09/02/16 (75%) Progress towards goal: Progressing Plan PLAN OF CARE EXPIRES ON:: 09/02/16 ORDER # VISITS AND/OR THROUGH DATE: 09/02/16, 1-2 x 4 with cont order on (08/03/16 ) PLAN: Progress Exercises
--- NOTE | 2016-08-30 11:01 | RS.CSNOTE ---
PT Case Note Date of Note: 08/30/16 Title of document: Case note/cancel Note: Patient calls to says she is not able to make her last appt. She says she is pleased with her progress and feels she is doing well enough to cancel. She was encouraged to stop by to complete her UE Functional Scale and receive progressed tbands when able. Will plan for discharge as she returns to [facility] in 2 weeks.
--- NOTE | 2016-09-20 14:51 | RS.QUICKDC ---
Discharge from PT Date of Discharge: 09/20/16 Number of Visits: 28 Reason for Discharge: Patient had received ice, estim, therex to the R shoulder which progressed to strengthening and advanced HEP. AROM was WNL all dir. Strength was 5/5 generally. She was compliant with all appts, but did cancel her final visit. For specific treatment, see daily notes.
== END 2016-08-31 ==
PROVIDERS: ATTEND Orthopaedic Surgery
DX: M75.01 Adhesive capsulitis of right shoulder (principal)

== ENCOUNTER 2016-08-30 06:57 | Outpatient (CLI) ==
[2015-11-25 07:50] VITALS: BMI 26.5
[2016-08-30 07:34] LABS: BASOPHILS % (AUTO) 0.4 % (0.0-3.0); EOSINOPHILS # (AUTO) 0.1 K/ul (0.0-0.7); EOSINOPHILS % (AUTO) 1.4 % (0.0-7.0); HEMATOCRIT 47.4 % (37.0-47.0); HEMOGLOBIN 15.6 g/dl (12.0-16.0); IMMATURE GRANULOCYTE % (AUTO) 0.2 % (0.0-5.0); LYMPHOCYTES # (AUTO) 2.7 K/uL (0.60-3.4); LYMPHOCYTES % (AUTO) 29.6 (10.0-50.0); MEAN CORPUSCULAR HGB CONC 32.9 (31.8-35.4); MEAN CORPUSCULAR VOLUME 84.9 fl (81.0-99.0); MONOCYTES # (AUTO) 0.6 K/uL (0.4-2.0); MONOCYTES % (AUTO) 6.6 (0-10); NEUTROPHILS # (AUTO) 5.6 K/ul (2.0-6.9); NEUTROPHILS % (AUTO) 61.8; PLATELET COUNT 162 10^3/uL (140-440); RED BLOOD COUNT 5.58 10^6/ul (4.20-5.40); WHITE BLOOD COUNT 9.09 K/ul (4.6-10.2)
[2016-08-30 07:49] LABS: ALBUMIN 3.9 g/dL (3.4-5.0); ALBUMIN/GLOBULIN RATIO 1.18; ANION GAP 14.5; BILIRUBIN,TOTAL 0.43 mg/dL (0.00-1.20); BUN/CREATININE RATIO 11.32; CALCIUM 9.7 mg/dL (8.2-10.2); CHOL/HDL RATIO 3.8 (4.5-5.5); CREATININE 1.06 mg/dL (0.60-1.30); POTASSIUM 4.5 mmol/L (3.5-5.10); TOTAL PROTEIN 7.2 g/dL (5.8-8.1)
== END 2016-08-30 06:58 | disposition home or self-care (01) ==
LOC: LAB 06:57
PROVIDERS: ATTEND Nurse Practitioner Family
DX: E78.5 Hyperlipidemia, unspecified (principal); D75.1 Secondary polycythemia; F32.9 Major depressive disorder, single episode, unspecified
CPT/HCPCS: 36415; 80053; 80061; 83036; 85025

== ENCOUNTER 2016-10-05 09:41 | Outpatient (CLI) ==
[2015-11-25 07:50] VITALS: BMI 26.5
--- NOTE | 2016-10-05 11:48 | MAMMO ---
EXAM: Bilateral digital screening mammogram History: Screening Comparison: Bilateral mammogram 09/30/2015 Findings: MLO and CC views of bilateral breasts demonstrate scattered fibroglandular breast parench yma. Stable benign bilateral breast calcifications. There are no dominant masses, no suspicious mi crocalcifications and no architectural distortions. Biopsy clip again seen within the right breast. Impression: Benign stable mammogram. Recommend followup routine screening mammography in 1 year. BIRADS 2
== END 2016-10-05 09:42 | disposition home or self-care (01) ==
LOC: RAD 09:41
PROVIDERS: ATTEND Nurse Practitioner Family
DX: Z12.31 Encounter for screening mammogram for malignant neoplasm of breast (principal)

== ENCOUNTER 2016-12-13 17:42 | Emergency (ER) ==
[2016-12-13 17:47] VITALS: BP 160/82; TEMP 98.8; BMI 24.6
--- NOTE | 2016-12-13 18:02 | ED.PDOC ---
General ED Provider: Dr. RILEY RODRIGUEZ JR Chief Complaint: Fall Stated Complaint: SLID ON A WET SPOT ON FLOOR AND FELL. PAIN TO RIGHT FOREARM WITH BRUISE , RIGHT GREAT TOE, RIGHT KNEE, LEFT HIP RADIATING UP TO NECK. NO LOC [ End ]1 hour 98.8 66 18 96% 160/82 9/10 Time Seen by Physician: 18:02 Mode of Arrival: Walk-In Information Source: Patient Exam Limitations: No limitations [facility] Documentation Reviewed and Agree: No Review of Systems - Review Of Systems Constitutional: Reports: Malaise, Weakness Eyes: Reports: No symptoms Ears, Nose, Mouth, Throat: Reports: No symptoms Respiratory: Reports: Short of air, Wheezing Cardiac: Reports: No symptoms GI: Reports: No symptoms : Reports: No symptoms Musculoskeletal: Reports: No symptoms Skin: Reports: No symptoms Neurological: Reports: No symptoms Endocrine: Reports: No symptoms Hematologic/Lymphatic: Reports: No symptoms All Other Systems: Other Past Medical History - Past Medical History Endocrine: Reports: DM 2, Dyslipidemia Cardiovascular: Reports: Other (cludication symptms has not finished evaluation of leg arteries) Respiratory: Reports: COPD Hematological: Reports: None Gastrointestinal: Reports: None Genitourinary: Reports: Kidney stones Neuro/Psych: Reports: Migraine Musculoskeletal: Reports: Arthritis Cancer: Reports: None Last Menstrual Period: NONE Other Pertinent Past Medical History: ca - Surgical History General Surgical History: Reports: Hysterectomy, (C-SECTIONS X 2), Back Surgery, Other (BIOPSY, LITHOPRIPSY, MICHELE TEAR REPAIR,, CYST REMOVED FROM BREAST) - Family History Family History: Reports: Unknown - Social History Smoking Status: Current every day smoker, Light tobacco smoker Hx Substance Use: No Alcohol Screening: Occasionally Physical Exam - Physical Exam Appearance: Ill-appearing, Thin Pain Distress: Moderate Eyes: WILIAM, EOMI, Conjunctiva clear ENT: Ears normal, Nose normal, Oropharynx normal Neck: Supple Respiratory: Airway patent, Wheezes Cardiovascular: RRR, Pulses normal, No rub, No murmur GI/: Soft, Nontender, No masses, Bowel sounds normal, No Organomegaly Musculoskeletal: Normal strength, ROM intact, No edema, No calf tenderness Skin: Warm, Dry, Normal color Neurological: Sensation intact, Motor intact, Reflexes intact, Cranial nerves intact, Alert, Oriented Psychiatric: Affect appropriate, Mood appropriate Critical Care Note - Critical Care Note Total Time (mins): 0 Course - Course Orders, Labs, Meds: Orders Category Date Time Status Ondansetron HCl [Zofran Tab] MEDS 12/13/16 18:32 Discontinued 4 mg PO ONCE STA PELVIS & MARY HIPS Stat RADS 12/13/16 18:07 Taken TOE(S), RIGHT MIN 2V Stat RADS 12/13/16 18:07 Taken Medications Discontinued Medications Generic Name Dose Route Start Last Admin Trade Name Freq PRN Reason Stop Dose Admin Ondansetron HCl 4 mg 12/13/16 18:32 12/13/16 18:37 Zofran Tab PO 12/13/16 18:33 4 mg ONCE STA Administration Vital Signs: Temp Pulse Resp BP Pulse Ox 12/13/16 17:42 98.8 F 66 18 160/82 H 96 Departure - Departure Time of Disposition: 19:03 Disposition: HOME SELF-CARE Discharge Problem: Falls, Left hip pain, Toe pain, right Instructions: Contusion in Adults (ED) Condition: Good Pt referred to PMD for follow-up: Yes Additional Instructions: recheck one week PMD return if worsening elevate foot 2 hours twice a day ice 20 minutes three times a day Ultram for pain not controlled by Tylenol Prescriptions: Tramadol HCl [Ultram] 50 mg PO Q6H PRN #14 tablet PRN Reason: PAIN Allergies/Adverse Reactions: Allergies morphine Allergy (Severe, Verified 12/13/16 17:48) local reaction with IV Sulfa (Sulfonamide Antibiotics) Allergy (Severe, Verified 12/13/16 17:48) rash itching Penicillins Allergy (Mild, Verified 12/13/16 17:48) rash pt unsure of reaction metformin Adverse Reaction (Verified 12/13/16 17:48) Home Medications: Ambulatory Orders Budesonide/Formoterol Fumarate [Symbicort 160-4.5 Mcg Inhaler] 1 puff INH DAILY 07/28/14 Flonase 16 gm NS PRN PRN 09/22/14 Aspirin [Aspir 81] 81 mg PO DAILY 11/02/15 Clopidogrel Bisulfate [Clopidogrel] 75 mg PO d 09/12/16 Tramadol HCl [Ultram] 50 mg PO Q6H PRN #14 tablet 12/13/16
[2016-12-13] MEDS ORDERED: ZOFRAN TAB PO STA (18:32)
--- NOTE | 2016-12-14 03:06 | DI ---
EXAM: AP pelvis and bilateral hips. HISTORY: Fall. FINDINGS: The bones are intact with no evidence of fracture. The joint spaces are maintained. There are degenerative changes along the margin of the pubic symphysis. There are bilateral vascular stents . Impression: No evidence of fracture. Degenerative changes as described. Bilateral vascular stents.
--- NOTE | 2016-12-14 03:08 | DI ---
EXAM: Three views of the right first toe. HISTORY: Fall. FINDINGS: There is an ill-defined lucency through the tuft of the distal phalanx of the right first d igit suspicious for a nondisplaced fracture. The joint spaces are maintained. No soft tissue abnormal ity. Impression: Ill-defined lucency through the tuft of the distal phalanx of the right first digit susp icious for a nondisplaced fracture.
== END 2016-12-13 19:15 | disposition home or self-care (01) ==
LOC: ED 17:42
DX: M25.552 Pain in left hip (principal); M79.674 Pain in right toe(s); S50.11XA Contusion of right forearm, initial encounter; M25.561 Pain in right knee; W01.0XXA Fall on same level from slipping, tripping and stumbling without subsequent striking against object, initial encounter; F17.210 Nicotine dependence, cigarettes, uncomplicated
CPT/HCPCS: 99282

== ENCOUNTER 2017-02-21 07:41 | Outpatient (CLI) ==
[2017-02-21 08:04] LABS: BASOPHILS # (AUTO) 0.1 K/uL (0-0.2); BASOPHILS % (AUTO) 0.9 % (0.0-3.0); EOSINOPHILS # (AUTO) 0.1 K/ul (0.0-0.7); EOSINOPHILS % (AUTO) 1.7 % (0.0-7.0); HEMATOCRIT 48.6 % (37.0-47.0); HEMOGLOBIN 16.1 g/dl (12.0-16.0); IMMATURE GRANULOCYTE % (AUTO) 0.4 % (0.0-5.0); LYMPHOCYTES # (AUTO) 2.3 K/uL (0.60-3.4); LYMPHOCYTES % (AUTO) 30.2 (10.0-50.0); MEAN CORPUSCULAR HEMOGLOBIN 28.7 pg (27.0-31.0); MEAN CORPUSCULAR HGB CONC 33.1 (31.8-35.4); MEAN CORPUSCULAR VOLUME 86.6 fl (81.0-99.0); MONOCYTES # (AUTO) 0.5 K/uL (0.4-2.0); MONOCYTES % (AUTO) 6.2 (0-10); NEUTROPHILS # (AUTO) 4.6 K/ul (2.0-6.9); NEUTROPHILS % (AUTO) 60.6; PLATELET COUNT 180 10^3/uL (140-440); RED BLOOD COUNT 5.61 10^6/ul (4.20-5.40); WHITE BLOOD COUNT 7.61 K/ul (4.6-10.2)
[2017-02-21 08:45] LABS: ALBUMIN 4.5 g/dL (3.4-5.0); ALBUMIN/GLOBULIN RATIO 1.05; BILIRUBIN,TOTAL 0.57 mg/dL (0.00-1.20); BUN/CREATININE RATIO 12.72; CALCIUM 10.5 mg/dL (8.2-10.2); CHOL/HDL RATIO 4.7 (4.5-5.5); CREATININE 1.1 mg/dL (0.60-1.30); TOTAL PROTEIN 8.8 g/dL (5.8-8.1)
== END 2017-02-21 07:42 | disposition home or self-care (01) ==
LOC: LAB 07:41
PROVIDERS: ATTEND Nurse Practitioner Family
DX: E11.9 Type 2 diabetes mellitus without complications (principal); I10 Essential (primary) hypertension; E78.5 Hyperlipidemia, unspecified; Z72.0 Tobacco use
CPT/HCPCS: 36415; 80053; 80061; 83036; 84443; 85025

== ENCOUNTER 2017-05-19 07:54 | Outpatient (CLI) | END 2017-05-19 07:55 | disposition home or self-care (01) | LOC: LAB 07:54 | PROVIDERS: ATTEND Nurse Practitioner Family | DX: E11.9 Type 2 diabetes mellitus without complications (principal); I10 Essential (primary) hypertension; E78.5 Hyperlipidemia, unspecified; D75.1 Secondary polycythemia | CPT/HCPCS: 36415; 80053; 80061; 83036; 85025 ==

== ENCOUNTER 2017-09-12 06:41 | Outpatient (CLI) | payer OTHER | END 2017-09-12 06:42 | disposition home or self-care (01) | LOC: LAB 06:41 | PROVIDERS: ATTEND Nurse Practitioner Family | DX: E11.9 Type 2 diabetes mellitus without complications (principal); E78.5 Hyperlipidemia, unspecified; I10 Essential (primary) hypertension | CPT/HCPCS: 36415; 80053; 80061; 83036 ==

== ENCOUNTER 2017-10-09 12:35 | Outpatient (CLI) | payer OTHER | END 2017-10-09 12:36 | disposition home or self-care (01) | LOC: RAD 12:35 | PROVIDERS: ATTEND Nurse Practitioner Family | DX: Z12.31 Encounter for screening mammogram for malignant neoplasm of breast (principal) | CPT/HCPCS: 77067 ==

== ENCOUNTER 2018-05-24 06:06 | Outpatient (CLI) | payer OTHER | END 2018-05-24 06:07 | disposition home or self-care (01) | LOC: LAB 06:06 | PROVIDERS: ATTEND Nurse Practitioner Family | DX: E11.9 Type 2 diabetes mellitus without complications (principal); Z72.0 Tobacco use; I10 Essential (primary) hypertension; F32.9 Major depressive disorder, single episode, unspecified; E78.5 Hyperlipidemia, unspecified | CPT/HCPCS: 36415; 80053; 80061; 83036; 84443; 85025 ==

== ENCOUNTER 2018-08-06 11:33 | Outpatient (CLI) | payer OTHER | END 2018-08-06 11:34 | disposition home or self-care (01) | LOC: RHC-LAB 11:33 | PROVIDERS: ATTEND Nurse Practitioner Family | DX: R31.9 Hematuria, unspecified (principal) | CPT/HCPCS: 81001; 87086 ==

== ENCOUNTER 2018-08-20 11:44 | Outpatient (CLI) | END 2018-08-20 11:45 | disposition home or self-care (01) | LOC: RHC-LAB 11:44 | PROVIDERS: ATTEND Nurse Practitioner Family | DX: E11.9 Type 2 diabetes mellitus without complications (principal) | CPT/HCPCS: 36415; 80053; 83036 ==

== ENCOUNTER 2018-08-22 07:33 | Outpatient (CLI) ==
--- NOTE | 2018-08-22 09:16 | CT ---
EXAM: CT of the abdomen pelvis with and without contrast History: Bloody urine Comparison: CT abdomen pelvis 10/24/2015 Technique: Multiplanar CT images through the abdomen pelvis were obtained with and without the admin istration of IV contrast Findings: Lung bases are clear. No acute osseous abnormalities. No discrete gallstones identified by CT. Atherosclerotic vascular calcifications. Possible mass wit hin the distal esophagus. The 8 mm calculus within the inferior pole of the left kidney. 4 mm calcu fabiana within the right renal pelvis. There is no hydronephrosis. No ureteral calculi. Left renal art mark stent. No renal masses. No bladder wall thickening. No evidence for bowel obstruction. The ap pendix is normal. Pancreas is within normal limits. Adrenal glands are unremarkable. No focal live r or splenic lesions. No pathologically enlarged lymph nodes. No inflammatory stranding. Status po st hysterectomy. No perirectal inflammation. Impression: 1. Nonobstructing bilateral nephrolithiasis. Calcification is seen within the right renal pelvis. 2. Possible distal esophageal mass. Recommend correlation with upper endoscopy. 3. Left renal artery stent.
== END 2018-08-22 07:34 | disposition home or self-care (01) ==
LOC: RAD 07:33
PROVIDERS: ATTEND Nurse Practitioner Family
DX: R31.9 Hematuria, unspecified (principal); Z98.890 Other specified postprocedural states

== ENCOUNTER 2018-12-04 11:49 | Outpatient (CLI) | payer OTHER | END 2018-12-04 11:50 | disposition home or self-care (01) | LOC: RHC-LAB 11:49 | PROVIDERS: ATTEND Nurse Practitioner Family | DX: R31.9 Hematuria, unspecified (principal) | CPT/HCPCS: 81001 ==